=== PATIENT | male | born 1970 | race Caucasian/White ===

== ENCOUNTER 2023-01-08 14:28 | Outpatient (REF) | payer OTHER, SELFPAY ==
--- NOTE | ~2023-01-08 | XR_ITS ---
EXAMINATION: XR CHEST 2 VIEWS CLINICAL INFORMATION: Pre-MRI; right anterior chest foreign body. COMPARISON: None. TECHNIQUE: Frontal and lateral views of the chest were obtained. FINDINGS: The heart, great vessels, pulmonary vasculature and mediastinum are normal. The lungs show no focal infiltrate, effusion or pneumothorax. There is no acute osseous abnormality. Within the anterior lower right chest soft tissues, a 6 mm linear metallic foreign body is noted. XR/XR chest 2V IMPRESSION: 1. No active cardiopulmonary disease. 2. A 6 mm linear metallic foreign bodies noted within the anterior lower right chest soft tissues.
[2023-01-08 17:35] LABS: Hematocrit 43.1 % (42.0-52.0); Mean Corpuscular HGB Conc 34.8 g/dl (31.0-36.0); Mean Corpuscular Hemoglobin 29.5 pg (27.0-33.0); Mean Corpuscular Volume 84.8 fL (80.0-98.0); Mean Platelet Volume 9.7 fL (9.4-12.4); Platelet Count 248 X10*3/uL (160-400); Red Blood Count 5.08 X10*6/uL (4.60-5.80); Red Cell Distribution Width 12.9 % (11.0-16.0); White Blood Count 6.1 X10*3/uL (4.8-10.8)
[2023-01-08 18:38] LABS: Alanine Aminotransferase 31 U/L (0-40); Albumin Level 4.3 g/dL (3.5-5.0); Alkaline Phosphatase 93 U/L (39-117); Anion Gap 13 (12-20); Aspartate Amino Transferase 25 U/L (5-37); Bilirubin Total 1.2 mg/dL (0.0-1.0); Blood Urea Nitrogen 12 mg/dL (9-16); C Reactive Protein < 0.10 mg/dL (< or = 0.50); Calcium 9.1 mg/dL (8.4-10.2); Carbon Dioxide 25 mmol/L (22-29); Chloride 107 mmol/L (96-108); Estimated Glomerular Filt Rate > 60; Glucose Random 83 mg/dL (60-115); Iron 100 mcg/dL (45-160); Percent Iron Saturation 27 % (15-50); Potassium 3.8 mmol/L (3.3-5.1); Sodium 141 mmol/L (135-145); Total Iron Binding Capacity 368 mcg/dL (228-428); Total Protein 6.8 g/dL (6.5-8.0); Unsaturated Iron Binding 268 ug/dL
[2023-01-08 19:09] LABS: Ferritin 136 ng/mL (20-250); Folate 14.1 ng/mL (> or = 4.0); Vitamin B12 361 pg/mL (200-900); Vitamin D 25-OH Total 14.2 ng/mL (>30)
[2023-01-10 04:22] LABS: HBc Num1 0.08 S/CO (0.00-0.79); Hepatitis B Core Antibody Nonreactive (Nonreactive); Hepatitis B Surface Antigen Negative (Negative); ~Hepatitis B Surface Antibody NONREACTIVE (Nonreactive)
[2023-01-10 04:28] LABS: Hepatitis A Antibody IgG Nonreactive (Nonreactive); ~Hepatitis A Antibody IgG 0.64 S/CO (0.00-0.99)
[2023-01-10 04:29] LABS: ~Hepatitis C Antibody Nonreactive (Nonreactive)
[2023-01-10 13:34] LABS: Transglutaminase IgA <1.0 U/mL
[2023-01-10 14:24] LABS: Immunoglobulin A 205 mg/dL (47-310)
[2023-01-17 19:59] LABS: TPMT Activity 15
== END 2023-01-08 14:29 | disposition home or self-care (01) ==
LOC: HO.LAB 14:28
PROVIDERS: PCP Physician Assistant Medical; Visit Provider Internal Medicine
DX: K50.90 Crohn's disease, unspecified, without complications (principal); K74.60 Unspecified cirrhosis of liver; K60.3 Anal fistula; L98.9 Disorder of the skin and subcutaneous tissue, unspecified; S20.151A Superficial foreign body of breast, right breast, initial encounter; X58.XXXA Exposure to other specified factors, initial encounter; Y93.9 Activity, unspecified; Y92.9 Unspecified place or not applicable; Y99.9 Unspecified external cause status; Z79.899 Other long term (current) drug therapy
CPT/HCPCS: 36415; 71046; 80053; 80145; 82306; 82542; 82607; 82657; 82728; 82746; 82784; 83540; 85027; 86140; 86364; 86481; 86704; 86706; 86708; 86803; 87340

== ENCOUNTER → 2023-01-29 14:31 | Outpatient (BNVA) | payer OTHER, SELFPAY | PROVIDERS: PCP Physician Assistant Medical; Visit Provider Internal Medicine | DX: Z13.89 Encounter for screening for other disorder (principal) ==

== ENCOUNTER 2023-01-29 14:49 | Outpatient (REF) | payer OTHER, SELFPAY ==
[2023-02-03 20:29] LABS: Calprotectin, Fecal 10 mcg/g
== END 2023-01-29 14:50 | disposition home or self-care (01) ==
LOC: HO.LNP 14:49
PROVIDERS: Visit Provider Internal Medicine
DX: K50.90 Crohn's disease, unspecified, without complications (principal); K60.3 Anal fistula
CPT/HCPCS: 83993

== ENCOUNTER → 2023-02-19 14:57 | Outpatient (BNVA) | payer OTHER, SELFPAY | PROVIDERS: PCP Physician Assistant Medical; Referring Provider Internal Medicine; Visit Provider Surgery | DX: K60.3 Anal fistula (principal) | CPT/HCPCS: 46600 ==

== ENCOUNTER 2023-02-19 15:40 | Outpatient (REF) | payer OTHER, SELFPAY ==
[2023-02-19 17:03] LABS: Blood Urea Nitrogen 11 mg/dL (9-16); Estimated Glomerular Filt Rate > 60
== END 2023-02-19 15:41 | disposition home or self-care (01) ==
LOC: HO.LAB 15:40
PROVIDERS: PCP Physician Assistant Medical; Visit Provider Surgery
DX: K60.3 Anal fistula (principal)
CPT/HCPCS: 36415; 82565; 84520

== ENCOUNTER 2023-03-09 09:57 | Outpatient (REF) | payer OTHER, SELFPAY ==
--- NOTE | ~2023-03-09 | CT_ITS ---
EXAMINATION: CT ENTEROGRAPHY ABDOMEN AND PELVIS WITH CONTRAST CLINICAL INFORMATION: Anal fistula COMPARISON: None available. TECHNIQUE: Study performed with oral VoLumen (1350 mL) and 480 mL of water to distend the abdomen. The patient was injected with 85 mL Omnipaque 350 intravenous contrast which was administered without adverse effect. Coronal and sagittal reformatted images were obtained at the technologist's workstation. This CT examination was performed using dose optimization techniques as appropriate, variously including the following: *Automated exposure control *Adjustment of mA and/or kV according to patient size (this includes techniques or standardized protocols for targeted exams where dose is matched to indication/reason for exam; i.e. extremities or head) *Use of iterative reconstruction technique DLP: 650 mGy-cm FINDINGS: GASTROINTESTINAL FINDINGS: Stomach: Well-distended and normal in appearance. Small intestine: Satisfactorily distended and normal in appearance. Large intestine: Mild diverticulosis. Well-distended and otherwise normal in appearance. No perirectal changes demonstrated. The appendix is normal. Renal fistula not appreciated. Additional findings: No abnormal enhancement of the vasa recta or significant mesenteric or retroperitoneal lymphadenopathy is seen. No abdominal abscess or fistulous tract demonstrated. ABDOMINAL AND PELVIC CT FINDINGS: Liver, gallbladder, biliary tract: Fatty liver. 1 cm enhancing lesion high in the dome of the liver axial image 28 series 3. 1 cm low-attenuation lesion in the right lobe axial image 54 series 3 probably representing a cyst. 8 mm low-attenuation lesion in the inferior posterior segment of the right lobe axial image 118 series 3 probably representing a cyst. Normal gallbladder. No biliary duct dilatation. Pancreas: Normal Spleen: Normal Adrenal glands and kidneys: The adrenal glands are normal. There 2 small punctate 1 to 2 mm left renal stones.. The kidneys are otherwise normal. Ureters and bladder: Normal Lymphovascular structures: Normal Bones: Degenerative changes of the spine. Lung bases: Normal CT/CT enterography IMPRESSION: Mild diverticulosis of the colon. Otherwise unremarkable enterography exam. Fatty liver. 1 cm enhancing lesion high in the dome of the liver. Probable 2 additional liver cysts. Liver lesions could be further characterized with MRI if clinically indicated. Small left renal stones.
[2023-03-09] MEDS: Sorbitol/Mannit/Xanth Imaging 500 ML LIQUID 1500 ML PO (11:28)
[2023-03-09] MEDS: iohexoL 350 MG/ML 100 ML INFUS..BTL IV (11:35)
== END 2023-03-09 09:58 | disposition home or self-care (01) ==
LOC: HO.CT 09:57
PROVIDERS: PCP Physician Assistant Medical; Visit Provider Internal Medicine
DX: K50.90 Crohn's disease, unspecified, without complications (principal)
CPT/HCPCS: 74177; Q9967

== ENCOUNTER → 2023-03-19 14:14 | Outpatient (BNVA) | payer OTHER, SELFPAY | PROVIDERS: PCP Physician Assistant Medical; Visit Provider Surgery ==

== ENCOUNTER 2023-04-12 10:47 | Day surgery (SDC) | payer OTHER, SELFPAY ==
--- NOTE | 2023-04-11 11:59 | HO.ANESPROP2 ---
HPI - Anesthesia Eval Consult details Narrative: 53yo M for Colonoscopy PMFSH Active Problems Active Problems: All Active Problems (Updated 03/16/23 @ 15:42 by Taylor Casey MD) Liver lesion (Acute) Skin lesion of hand (Acute) Metal foreign body in breast (Acute) Anal fistula (Acute) Crohn's disease (Acute) Past Medical History Medical History Ileorectal fistula Surgical History Surgical History H/O colonoscopy H/O endoscopy History of surgery Social History Social History Alcohol intake: current Patient Tobacco Use Status: Never used Tobacco Meds Allergies Allergy/AdvReac Type Severity Reaction Status Date / Time No Known Allergies Allergy Verified 03/19/23 14:23 Home Medications Medication Instructions Recorded Confirmed Last Taken Type adalimumab 40 mg/0.8 mL 40 mg subcut Q2W 01/08/23 04/10/23 Unknown History subcutaneous syringe kit (Humira) meloxicam 15 mg tablet 15 mg PO DAILY 01/08/23 04/10/23 Unknown History verapamil .Route 01/08/23 03/19/23 Unknown History Exam Exam Date and Time: April 11, 2023 1159 Pertinent Lab Results Pertinent Lab Results: Laboratory Tests 01/08/23 01/08/23 02/19/23 16:14 16:14 15:52 WBC 6.1 Hgb 15.0 Hct 43.1 Plt Count 248 Sodium 141 Potassium 3.8 Chloride 107 Carbon Dioxide 25 BUN 11 Creatinine 1.01 Assessment and Plan Assessment Anesthesia Assessment: Chart Reviewed
[2023-04-12 11:05] VITALS: BMI 36.3
--- NOTE | 2023-04-12 11:57 | MHC.SHP ---
Pre-Procedural Eval Section A Date of Service: 04/12/23 Section B Chief Complaint: Anal fistula, crohns Details of Present Illness: Medical History Anal fistula Surgical History H/O colonoscopy H/O endoscopy Relevant Family History (Specify if Yes): No Relevant Social History: None Present Medications: see Short Stay Collaborative assessment Allergies: Allergies Allergy/AdvReac Type Severity Reaction Status Date / Time No Known Allergies Allergy Verified 03/19/23 14:23 Review of Systems Review of Systems Comment: 10 point ROS negative Exam Exam Comment: Gen appear: No acute distress HEENT: no icterus Chest: No overt resp distress Abd: soft, nontender, nondistended Psych: Stable affect, answering questions appropriately Neuro: A/Ox3 noted to move all extremities spontaneously Ext: no peripheral edema Plan Diagnosis/Plan: Unchanged I have reviewed the history and physical and performed a pertinent physical examination on my patient. No changes have occurred unless specified. Time Spent With Patient Time: Total time managing care of this patient today ____ minutes.
[2023-04-12] MEDS: Lactated Ringers 1,000 ML 100 ML IVCONT (12:12)
[2023-04-12 12:23] VITALS: BP 168/85; PULSE 58; RESP 18; TEMP 36.6; O2SAT 96
[2023-04-12 13:59] VITALS: BP 137/79; PULSE 66; RESP 16; TEMP 36.4; O2SAT 95
--- NOTE | 2023-04-12 13:59 | P.OP_ITS ---
Operative Note Operative Note Date of Service: 04/12/23 Narrative: Procedure: Colonoscopy Indication: Chronic Diarrhea r/o Crohns Endoscopist: Taylor Casey MD Anesthesia Provider: Dr Susan Means Anesthesia type: MAC Instrument: Olympus [id number]-H190L Consent: Indication, risks vs benefits, and alternatives were discussed with the patient who gave written informed consent to proceed. EKG, pulse, pulse oximetry and blood pressure were monitored throughout the procedure. Please see anesthesia flowsheet. Procedure: The patient was brought to the procedure room and placed in the left lateral decubitus position. IV medications were administered by the anesthesia provider in attendance. A digital rectal exam was performed which was normal. A distal attachment cap was affixed to the tip of the scope and the colonoscope was then inserted through the anus and advanced through the colon to the cecum at 75 cm,and terminal ileum. Appendiceal orifice and ileocecal valve were identified. Mucosa was carefully examined under high definition white light as the instrument was slowly withdrawn in a retrograde panoramic fashion. Retroflexion was performed in rectum. The procedure was not difficult. There were no immediate obvious complications. The quality of the prep was BBPS: 3+3+3 = excellent Withdrawal time 13 minutes. Limitations: No limitations. Findings: Mucosa: Normal to cecum and terminal ileum. The terminal ileum was intubated at least 25 cm deep and appeared normal. Cold forceps biopsies were taken from right and left side of the colon as well as rectum and sent for histology. Protruding lesions: * Medium internal hemorrhoids without stigmata of recent bleeding. Excavated lesions: * Small diverticulosis of sigmoid colon. Impression: 1. Normal colon and terminal ileum mucosa (biopsy) 2. Internal hemorrhoids Recommendations: - Follow path results. - No endoscopic evidence of inflammatory bowel disease noted on exam today. - Repeat colonoscopy for asymptomatic CRC screening in 10 years.
[2023-04-12 14:14] VITALS: BP 150/87; PULSE 62; RESP 16; TEMP 36.7; O2SAT 97
== END 2023-04-12 14:47 | disposition home or self-care (01) ==
PROVIDERS: PCP Physician Assistant Medical; Visit Provider Internal Medicine
PROC: 0DJD8ZZ Inspection of Lower Intestinal Tract, Via Natural or Artificial Opening Endoscopic (ICD-10-PCS; CPT 45378; principal; 2023-04-12 12:50)
DX: K50.90 Crohn's disease, unspecified, without complications (principal); K57.30 Diverticulosis of large intestine without perforation or abscess without bleeding; K64.8 Other hemorrhoids; Z79.899 Other long term (current) drug therapy; Z98.890 Other specified postprocedural states
CPT/HCPCS: 45380; 88305

== ENCOUNTER → 2023-04-23 14:59 | Outpatient (BNVA) | payer OTHER, SELFPAY | PROVIDERS: PCP Physician Assistant Medical; Visit Provider Internal Medicine ==

== ENCOUNTER 2023-05-04 09:03 | Day surgery (SDC) | payer OTHER, SELFPAY ==
[2023-05-02 14:55] VITALS: BMI 36.4
--- NOTE | 2023-05-03 08:47 | HO.ANESPROP2 ---
HPI - Anesthesia Eval Consult details Narrative: 53yo M for Exam Under Anesthesia,poss fistulotomy,poss seton, s/p colo 04/12/23 with MAC PMFSH Active Problems Active Problems: All Active Problems (Updated 03/16/23 @ 15:42 by Taylor Casey MD) Liver lesion (Acute) Skin lesion of hand (Acute) Metal foreign body in breast (Acute) Anal fistula (Acute) Crohn's disease (Acute) Past Medical History Medical History Ileorectal fistula Surgical History Surgical History H/O colonoscopy H/O endoscopy History of surgery Social History Social History Alcohol intake: current Patient Tobacco Use Status: Never used Tobacco Meds Allergies Allergy/AdvReac Type Severity Reaction Status Date / Time No Known Allergies Allergy Verified 03/19/23 14:23 Home Medications Medication Instructions Recorded Confirmed Last Taken Type adalimumab 40 mg/0.8 mL 40 mg subcut Q2W 01/08/23 04/10/23 Unknown History subcutaneous syringe kit (Humira) meloxicam 15 mg tablet 15 mg PO DAILY 01/08/23 04/10/23 Unknown History verapamil PO 04/23/23 Unknown History Exam Exam Date and Time: May 03, 2023 0847 Height,Weight and Vital Signs: Height 5 ft 5 in Weight 99.195 kg Pertinent Lab Results Pertinent Lab Results: Laboratory Tests 01/08/23 01/08/23 02/19/23 16:14 16:14 15:52 WBC 6.1 Hgb 15.0 Hct 43.1 Plt Count 248 Sodium 141 Potassium 3.8 Chloride 107 Carbon Dioxide 25 BUN 11 Creatinine 1.01 Assessment and Plan Assessment Anesthesia Assessment: Chart Reviewed
[2023-05-04] VITALS (7 sets, daily range): BP systolic 124–171; BP diastolic 71–94; PULSE 57–69; RESP 12–18; TEMP 36.6–36.9; O2SAT 95–98
--- NOTE | 2023-05-04 09:00 | MHC.SHP ---
Pre-Procedural Eval Section A Date of Service: 05/04/23 Section B Chief Complaint: Anal fistula Details of Present Illness: has had an area of recurrent swelling and drainage outside the anus, with history of anal fistula in the past; he has a question of Crohn's disease and is being followed by GI Relevant Family History (Specify if Yes): No Relevant Social History: None Present Medications: see Short Stay Collaborative assessment Medical History: Significant History ( Crohn's disease) Allergies: Allergies Allergy/AdvReac Type Severity Reaction Status Date / Time No Known Allergies Allergy Verified 03/19/23 14:23 Review of Systems Sugical H&P ROS: Negative: Constitution, Cardiovascular, Respiratory, Neurological, Psychiatric, Hem-Onc, Allergic/Immunologic, Gastrointestinal, Genitourinary, Musculoskeletal, Integumentary, Endocrine and Eyes/Ears/Nose/Throat Exam Surgical H&P Exam: Normal: HEENT, Normal: Heart, Normal: Lungs, Normal: Extremities, Normal: Abdomen, Normal: Skin and Normal: Neurological Plan Diagnosis/Plan: Unchanged I have reviewed the history and physical and performed a pertinent physical examination on my patient. No changes have occurred unless specified. Time Spent With Patient Time: Total time managing care of this patient today ____ minutes.
--- NOTE | 2023-05-04 09:57 | HO.ANESPROP2 ---
HPI - Anesthesia Eval Consult details Narrative: for exam under anesth and fisti caio repair PMFSH Active Problems Active Problems: All Active Problems (Updated 05/04/23 @ 09:35 by Alanna Stern RN) Crohn's disease (Acute) Anal fistula (Acute) Metal foreign body in breast (Acute) Skin lesion of hand (Acute) Liver lesion (Acute) Past Medical History Medical History Ileorectal fistula Sleep apnea Family History Family history of problems with anesthesia: No Surgical History Surgical History H/O colonoscopy H/O endoscopy History of surgery History of Problems with Anesthesia: No Social History Social History Alcohol intake: current Patient Tobacco Use Status: Former Tobacco user Use of substances other than those prescribed or required for medical reasons: No Are you DNR?: No Advance Directives: No Advance Directives Information Provided: Yes Recently lost weight without trying: No Nutrition Risks: No Nutritional Risk Meds Allergies Allergy/AdvReac Type Severity Reaction Status Date / Time No Known Allergies Allergy Verified 03/19/23 14:23 Active Medications: Current Medications Lactated Ringer's (Lr) 1,000 mls @ 100 mls/hr IVCONT .Q10H [facility] Home Medications Medication Instructions Recorded Confirmed Last Taken Type adalimumab 40 mg/0.8 mL 40 mg subcut Q2W 01/08/23 05/04/23 Unknown History subcutaneous syringe kit (Humira) meloxicam 15 mg tablet 15 mg PO DAILY 01/08/23 05/04/23 Unknown History verapamil 240 mg PO BEDTIME 04/23/23 05/04/23 Unknown History Exam Exam Date and Time: May 04, 2023 0957 Height,Weight and Vital Signs: Height 5 ft 5 in Weight 99.195 kg Airway Mallampati Class: II TM Dist: >3cm Neck ROM: Full Heart: rrr Lungs: cta Assessment and Plan Assessment Anesthesia Assessment: Anesthesia Plan Discussed and Chart Reviewed Final Anesthetic Review Family History of Problems with Anesthesia: No History of Problems with Anesthesia: No ASA Class: II Final Preanesthetic Review: No Changes in Pt Med Stat, Meds/Allgs Chart Reviewed, Consent Obtained/Reviewed and Anes Risks/Benef Reviewed Patient Risk: Low Procedure Risk: Low Anesthetic Plan Anesthetic Plan: GA Disposition: Standard PACU
--- NOTE | 2023-05-04 11:47 | W.PM.OPN ---
Operative Note Operative Note Date of Service: 05/04/23 Narrative: Preop diagnosis: Anal fistula Postop diagnosis: Anal fistula, spontaneously resolved Procedure: Exam under anesthesia Surgeon: Dustin Garrido MD The patient is a 53-year-old male who was seen in the office because of recurrent healing and discharge from the right side of the perianal area. He does have a history of an anal fistula and had refer this in the distant past. exam in the office showed foot appeared to be an active fistula on the perianal area. He understood the technique of exam under anesthesia and possible fistulotomy and seton placement. He was aware of the risks, benefits, and alternatives He did state today that he had not notice any significant drainage for a few weeks now. He was brought the operating room. He was placed in prone chandler-knife position under general anesthesia via endotracheal tube. The buttocks were retracted with wide tape laterally. The perianal area was prepped and draped in these were sterile fashion. A surgical time-out was done. The patient received Cefotan 2 g IV preoperatively I infiltrated the perianal area with with lidocaine 1%. Examination showed a fibrotic area in the perianal region. This is likely due to his previous procedures for fistula in this area.I could not identify any active sinus however . I inserted the Ame Mathews retractor. I examined the anal canal circumferentially. I could not feel any induration or identify an internal sinus along the dentate line . He did have significant hemorrhoidal tissue, external and internal on both the left and the right side. Again I circumferentially the entire anal canal and did not identify any fistulous tract. There was no induration on digital exam. I attempted to insert probe into the fibrotic area but I could not identify any external sinus It therefore appeared that the fistulous tract may have history resolved. The procedure was completed therefore The patient tolerated procedure well. There were no immediate complications. He was extubated without difficulty and transferred to the recovery room with stable vital signs.
== END 2023-05-04 12:50 | disposition home or self-care (01) ==
PROVIDERS: PCP Physician Assistant Medical; Visit Provider Surgery
PROC: (CPT 45990; principal; 2023-05-04 10:40)
DX: K60.3 Anal fistula (principal); K64.8 Other hemorrhoids; K64.4 Residual hemorrhoidal skin tags; G47.30 Sleep apnea, unspecified; K50.919 Crohn's disease, unspecified, with unspecified complications; Z79.620 Long term (current) use of immunosuppressive biologic; Z79.899 Other long term (current) drug therapy; Z98.890 Other specified postprocedural states; Z87.891 Personal history of nicotine dependence
CPT/HCPCS: 45990; J0330; J1100; J2405; J2795; J3010

== ENCOUNTER 2023-05-17 11:17 | Outpatient (AMB) | payer OTHER, SELFPAY ==
--- NOTE | 2023-05-17 11:18 | MHC.OFFVIS ---
Intake Intake Visit Reasons: S/P EUA, poss fistulotomy/seton placement Intake Note: This patient presents for a post-op assessment stauts post EUA,seton. Patient denies complaints at this time. Manager Field Required: No Accompanied by: Other Relationship Allergies No Known Allergies Allergy (Verified 05/17/23 11:22) HPI S/P EUA, poss fistulotomy/seton placement HPI Details He had undergone exam under anesthesia last May 04 because of suggestion of an anal fistula. However, there was no fistula seen so no fistulotomy nor seton placement was done. It appeared that the this fistula had closed completely. There was no induration that was noted. He says the area has been dry. He denies any swelling or pain. [facility] Medical History Ileorectal fistula Sleep apnea Surgical History H/O colonoscopy H/O endoscopy History of surgery Social History Alcohol intake: current Patient Tobacco Use Status: Former Tobacco user Review of Systems Const Denies chills and Denies fever(s) Card Denies chest pain, Denies dyspnea and Denies dyspnea on exertion Resp Denies cough, Denies dyspnea and Denies dyspnea on exertion GI Denies hematochezia and Denies change in bowel habits Denies hematuria and Denies difficulty urinating Musc Denies back pain and Denies limited range of motion Neuro Denies focal weakness and Denies convulsions Psych Denies depression and Denies mood swings Physical Exam Const General: comfortable and no acute distress GI Other: rectal - no induration, no fluctuance, no discharge Assessment & Plan Assessment & Plan (1) Anal fistula: Code(s): K60.3 - Anal fistula Plan: S/P EUA. Exam in the OR showed that there was no active fistulous disease. No external or internal sinus was identified and there was no induration. There is likely spontaneous resolution of his fistula. He can ffup on a prn basis. Coding Level of Care Code Global (67557) Diagnoses Anal fistula K60.3
== END 2023-05-17 11:25 | disposition home or self-care (01) ==
PROVIDERS: PCP Physician Assistant Medical; Visit Provider Surgery
DX: K60.3 Anal fistula (principal)
CPT/HCPCS: 99212

== ENCOUNTER → 2023-05-17 11:17 | Outpatient (BNVA) | payer OTHER, SELFPAY | PROVIDERS: PCP Physician Assistant Medical; Visit Provider Surgery ==

== ENCOUNTER 2023-08-06 13:32 | Outpatient (REF) | payer OTHER, SELFPAY ==
[2023-08-06 14:37] LABS: Alanine Aminotransferase 24 U/L (0-40); Alkaline Phosphatase 77 U/L (39-117); Anion Gap 15 (12-20); Aspartate Amino Transferase 22 U/L (5-37); Bilirubin Direct 0.1 mg/dL (0.0-0.5); Bilirubin Total 0.6 mg/dL (0.0-1.0); Blood Urea Nitrogen 12 mg/dL (9-16); Calcium 9.7 mg/dL (8.4-10.2); Carbon Dioxide 25 mmol/L (22-29); Chloride 105 mmol/L (96-108); Estimated Glomerular Filt Rate > 60; Glucose Random 85 mg/dL (60-115); Potassium 4.1 mmol/L (3.3-5.1); Sodium 141 mmol/L (135-145); Total Protein 7.2 g/dL (6.5-8.0)
[2023-08-09 09:43] LABS: TS Negative Control Passed; TS Panel A 6; TS Panel B 12; TS Positive Control Passed; TSpotTB Positive (Negative)
== END 2023-08-06 13:33 | disposition home or self-care (01) ==
LOC: HO.LAB 13:32
PROVIDERS: Visit Provider Internal Medicine
DX: K76.9 Liver disease, unspecified (principal); K50.90 Crohn's disease, unspecified, without complications
CPT/HCPCS: 36415; 80048; 80076; 85027; 85610; 86481

== ENCOUNTER 2023-08-10 10:31 | Outpatient (REF) | payer OTHER, SELFPAY ==
--- NOTE | ~2023-08-10 | CT_ITS ---
EXAMINATION: CT ABDOMEN WITHOUT AND WITH CONTRAST CLINICAL INFORMATION: Liver disease COMPARISON: Previous CT of the abdomen and pelvis February 2023 TECHNIQUE: Contiguous axial thin section helical images of the abdomen were performed before and after the administration of oral contrast and 85 mL of Omnipaque 350 intravenous contrast. The data set was reformatted in the coronal and sagittal planes and reviewed on an independent workstation. This CT examination was performed using dose optimization techniques as appropriate, variously including the following: *Automated exposure control *Adjustment of mA and/or kV according to patient size (this includes techniques or standardized protocols for targeted exams where dose is matched to indication/reason for exam; i.e. extremities or head) *Use of iterative reconstruction technique DLP: 1755 mGy-cm FINDINGS: LUNG BASES: Unremarkable LIVER, GALLBLADDER, AND BILIARY TREE: There is mild fatty infiltration of the liver. There is a 1.2 cm observation high in the dome of the liver. This is difficult to appreciate on precontrast images. This demonstrates early arterial phase heterogeneous enhancement. Example axial image 11 series 5. This remains enhanced with respect to the liver on late however appears slightly decreased in size and it is difficult to exclude some washout. There is an 8 mm low-attenuation lesion high in the right lobe of the liver. This does not demonstrate enhancement for example axial image 24 series 5 and probably represents a cyst. There is a 8 mm observation of early arterial phase enhancement in the anterior segment of the right lobe of the liver axial image 28 series 5. This is not seen on precontrast or delayed or venous phase imaging and difficult to accurately characterize. There is a similar 5 mm peripheral or subpleural 5 mm early arterial phase enhancement observation in the medial segment of the left lobe of the liver axial image 41 series 5. Again this is not appreciated on any other series. There is a similar 5 mm peripheral or subpleural observation in menstruating early arterial phase enhancement axial image 53 series 5. This is not appreciated on any other series as well. There is a 6 mm low-attenuation lesion in the posterior segment of the right lobe of the liver. This does not demonstrate enhancement for example axial image 60 series 5 and probably represents a cyst. Liver contour is normal. The gallbladder is normal. There is no biliary duct dilatation. PANCREAS: Normal SPLEEN: Normal ADRENAL GLANDS AND KIDNEYS: Small stones in the upper pole of the left kidney, largest measuring 3 mm. Kidneys are otherwise normal. BOWEL LOOPS: Diverticulosis of the colon. No evidence of diverticulitis. Small and large bowel are otherwise normal. The visualized appendix is normal. The stomach is normal. LYMPH NODES: Normal. VASCULAR: Unremarkable. BONES: Degenerative changes of the spine. CT/CT abdomen wo/w IV con IMPRESSION: Several liver lesions difficult to characterize, largest measuring 1.2 cm high in the dome of the liver. Follow-up liver MRI recommended. Mild fatty infiltration of the liver. Left renal stones. Fleischner guidelines were followed.
[2023-08-10] MEDS: iohexoL 350 MG/ML 100 ML INFUS..BTL IV (11:28)
== END 2023-08-10 10:32 | disposition home or self-care (01) ==
LOC: HO.CT 10:31
PROVIDERS: PCP Physician Assistant Medical; Visit Provider Internal Medicine
DX: K76.9 Liver disease, unspecified (principal)
CPT/HCPCS: 74170; Q9967

== ENCOUNTER 2023-08-31 14:49 | Outpatient (AMB) | payer OTHER, SELFPAY ==
--- NOTE | 2023-08-31 15:00 | A.OFFVIS_ITS ---
Intake Vital Signs 08/31/23 15:01 Height 5 ft 5 in Weight 224 lb 13.944 oz BMI 37.4 BP 154/83 H Blood Pressure Location Lt brachial Position Sitting Pulse 72 Intake Visit Reasons: Follow up CT results Intake Note: Luis presents in the office as a follow up CT scan. CC: Here for results to his CT scan. He had shoulder surgery recently. He feels like he is weak and everything always hurts. He states that his head and his stomach are always hurting. [employer] Required: No Allergies No Known Allergies Allergy (Verified 08/31/23 15:05) HPI HPI Comments History of Present Illness Details This is a 52y.o M with psoriasis on Humira who is here for follow up. Previously was being seen for ? crohns however based on review of previous documentation at [facility] [place] and [place] done [place] [facility] [place] no evidence of IBD so far. Main reason for follow up today is liver lesion . IBD history: Type: Crohns Location: [facility] Age/year of diagnosis: 1987/ 18 y.o Presenting sx: Initially had an anal fistula in 1987 however at that time was not given a dx of Crohns when he was seen at [facility]. Then started having abd pain with diarrhea with urgency with blood in stool starting [address] Lange in 2007 and while initial work up was negative per his report he did get started on Remicade x 2 years (which then got discontinued as it stopped working). Pt fell off the grid as his GI physician changed practice, he then established care with Dr Avina at [facility] around 2015, and again lost to follow up when physician changed practice. Previous medications: Remicade [id number], Symponi 2016 (a few months through Rheum), Humira ([id number] stopped due to injection site pain), resumed Humira (since 2021) Current medications: Humira 40mg q2w Prev surgeries: Anal fistula x 3 [facility] (1987, 1999, 2015) Recent endoscopy: Colonoscopy 06/2017 (Dr. Avina):? Erosion in terminal ileum.? Colon otherwise normal.? Diverticulosis in sigmoid colon.? Hemorrhoids.? Path:? TI: Normal.? Right-sided colon: focal active colitis no granuloma or dysplasia.? Left-sided colon: Normal.? Rectum:? Normal. EIM: Psoriasis present since 1985 (humira was in fact started by Rheum Dr Hull, thinks Remicade is what helped the most) Fam hx: ? sister possibly Crohn's 01/08/23: Reports that his last colorectal surg was quite daunting and he was told he may need an ileostomy so he never followed up even though the fistula never fully healed. Has continues to have that anal fistula which intermittently flares up and becomes painful with bleeding x 1 week, every few months. Pt has never noticed any feculent discharge through this, only reports blood or clear discharge. In addition also has daily abdominal pain that is periumbilical which does not seem to be related to fistula or food. Does get better with passing BM. BMs are mostly loose without blood. Has 5-6 BMs/day with urgency, occ nocturnal sx. Tenesmus. Limits his out of home time and activity significantly. 01/29/23: Reports discharge has improved. Is not as frequent or as much. However, he is not able to feel a small perianal bump. Continues to have loose watery diarrhea. Labs reviewed. Adalilumab levels 9.2. Without any drug antibody. Vit D low, supplements sent. Fecal calpro pending (pt submitted just today). Records from [facility] pending. CXR does in fact show a metalic FB and therefore unable to MRI. 03/09/23: CT enterography: Mild diverticulosis of the colon. Otherwise unremarkable enterography exam. Fatty liver. 1 cm enhancing lesion high in the dome o f the liver. Probable 2 additional liver cysts. Liver lesions could be further characterized with MRI if clinically indicated. Small left renal stones. 04/12/23: Flasher Impression: 1. Normal colon and terminal ileum mucos a (biopsy) 2. Internal hemorrhoids Path: A.? Colon, right, biopsy:? Colonic mucosa with lymphoid aggregates and no specific change; no colitis, granulomas or dysplasia.? B.? Colon, left, biopsy:? Colonic mucosa with lymphoid aggregates and no specific change; no colitis, granulomas or dysplasia.? C.? Colon, rectum, biopsy:? Colonic mucosa with lymphoid aggregates and minimal hyperplastic changes, otherwise no specific change; no colitis/proctitis, granulomas or dysplasia.? 04/23/23: Again, GI sx are more or less unchanged. Has periumbilical abd pain assoc with multiple loose BMs/ day. Pain not changed by passing the BM. No blood in stool. Has not noticed much perianal discharge in the last few weeks. CTE and colo findings reviewed with the pt - briefly no inflammatory activity noted. No obvious fistula or draining abscess noted. 08/31/23: Following up after getting a triple phased CT to follow up on abnormal CTE that showed a 1 cm enhancing lesion. Pt has a metallic foreign body subdermally in his chest of unknown origin due to which he is unable to get an MRI. Currently, no new GI sx. Here with his to discuss next step for eval of this 1 cm lesion. Of note - recent labs show TSPOT pos??? previously reports this was negative when it was checked by his program control analyst prior to starting him on Humira for psoriasis. In terms of ?? anal fistula vs abscess reports that a week after he was seen by Dr Garrido and JASSI was negative, it re-appeared and started draining again. They have not contacted his office re this. [facility] Medical History Sleep apnea Ileorectal fistula Surgical History History of surgery H/O endoscopy H/O colonoscopy Social History Alcohol intake: current Patient Tobacco Use Status: Former Tobacco user Review of Systems Const All systems reviewed & are unremarkable except as noted in HPI and below Physical Exam Vital Signs: Last Vital Signs Pulse 72 08/31/23 15:01 BP 154/83 H 08/31/23 15:01 BMI result Body Mass Index 37.4 Gen appear: NAD HEENT: nonicteric, no cervical lymphadenopathy Chest: CTA CVS: Regular S1/S2 Abd: soft, nontender, nondistended, bowel sounds + Ext: no peripheral edema Neuro: A/Ox3, noted to move all extremities spontaneously Psych: interacting appropriately Results Reviewed Results Reviewed: CTE 03/09/23: Mild diverticulosis of the colon. Otherwise unremarkable enterography exam. Fatty liver. 1 cm enhancing lesion high in the dome of the liver. Probable 2 additional liver cysts. Liver lesions could be further characterized with MRI if clinically indicated. Small left renal stones. CT triple phased 08/10/23: LIVER, GALLBLADDER, AND BILIARY TREE: There is mild fatty infiltration of the liver. There is a 1.2 cm observation high in the dome of the liver. This is difficult to appreciate on precontrast images. This demonstrates early arterial phase heterogeneous enhancement. Example axial image 11 series 5. This remains enhanced with respect to the liver on late however appears slightly decreased in size and it is difficult to exclude some washout. There is an 8 mm low- attenuation lesion high in the right lobe of the liver. This does not demonstrate enhancement for example axial image 24 series 5 and probably represents a cyst. There is a 8 mm observation of early arterial phase enhancement in the anterior segment of the right lobe of the liver axial image 28 series 5. This is not seen on precontrast or delayed or venous phase imaging and difficult to accurately characterize. There is a similar 5 mm peripheral or subpleural 5 mm early arterial phase enhancement observation in the medial segment of the left lobe of the liver axial image 41 series 5. Again this is not appreciated on any other series. There is a similar 5 mm peripheral or subpleural observation in menstruating early arterial phase enhancement axial image 53 series 5. This is not appreciated on any other series as well. There is a 6 mm low-attenuation lesion in the posterior segment of the right lobe of the liver. This does not demonstrate enhancement for example axial image 60 series 5 and probably represents a cyst. Liver contour is normal. The gallbladder is normal. There is no biliary duct dilatation. 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 Liver lesion: Incidentally noted on CTE. Unable to MRI due to metallic FB in R side of the ch est. CT triple phase was also not able to characterize this fully. Discussed with the pt and his that stability in size over months is reassuring and can either monitor this with serial imaging or refer for biopsy. They would like to opt for biopsy which has been requested. - US guided liver lesion bx 2. TSPOT pos Per his report, previously TSPOT has been negative when it was checked prior to starting Humira by his Derm. Discussed that possibly false positive and will recheck. Plan: - If negative, no further follow up needed. - If persistently positive, will refer him to ID. He will also need to update his Derm as hes on Humira for psoriasis. 3. Perianal drainage from ?fistula: No evidence of fistula/sinus/abscess on EUA or CTE done earlier this year. However pt reports this has now recurred. - Advised to call surgery office again for evaluation From prev visit re ?Crohns: Discussed with the pt at this time there is no evidence of active inflammatory bowel disease based on work up above. While I am not able to see an established histological dx of crohns, this is confounded by his longstanding hx of biologic use for psoriasis - i.e current colo was done on humira with drug level 9.2 in January. Prior to this, colo in 2017 at [facility] [place] was likely done on golimumab. No prior records from initial reported dx in through Dr Lange's office. 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
[2023-08-31 15:01] VITALS: BP 154/83; PULSE 72; BMI 37.4
== END 2023-08-31 16:05 | disposition home or self-care (01) ==
PROVIDERS: PCP Physician Assistant Medical; Visit Provider Internal Medicine
DX: K76.9 Liver disease, unspecified (principal); R76.11 Nonspecific reaction to tuberculin skin test without active tuberculosis; K60.3 Anal fistula
CPT/HCPCS: 99214

== ENCOUNTER 2023-08-31 14:49 | Outpatient (REF) | payer OTHER, SELFPAY ==
[2023-09-02 18:18] LABS: TS Negative Control Passed; TS Panel A 6; TS Panel B 10; TS Positive Control Passed; TSpotTB Positive (Negative)
== END 2023-08-31 14:50 | disposition home or self-care (01) ==
LOC: HO.LAB 14:49
PROVIDERS: PCP Internal Medicine; Visit Provider Internal Medicine
DX: R76.11 Nonspecific reaction to tuberculin skin test without active tuberculosis (principal); K76.9 Liver disease, unspecified; K60.3 Anal fistula
CPT/HCPCS: 36415; 86481

== ENCOUNTER 2023-09-14 12:26 | Outpatient (REF) | payer OTHER, SELFPAY ==
--- NOTE | ~2023-09-14 | US_ITS ---
EXAMINATION: US ABDOMEN LIMITED CLINICAL INFORMATION: Lesion of liver. COMPARISON: 08/10/2023 CT scan TECHNIQUE: Real-time imaging of the right upper quadrant abdominal viscera. FINDINGS: PANCREAS: Detail obscured by overlying bowel gas. Visualized portions of the body unremarkable LIVER: Diffusely increased hepatic echotexture suggesting underlying diffuse fatty infiltration. In the right dome of the liver there is a 1.4 cm cyst corresponding with the low-attenuation abnormality seen in the lateral aspect of the right dome. The CT scan also demonstrated a more superior and medially positioned enhancing lesion which is not able to be appreciated on the ultrasound. In theory a echogenic hemangioma may be difficult to distinguish from the background echogenic fatty liver on ultrasound. No biliary ductal dilatation. GALLBLADDER: Normal. The gallbladder is physiologically distended without evidence of stones, sludge, polyps, wall thickening or pericholecystic fluid. COMMON BILE DUCT: Normal in caliber measuring 0.7 cm in diameter. RIGHT KIDNEY: Normal. No hydronephrosis. No renal calculi or focal parenchymal lesions. The kidney measures 12.6 cm in maximum dimension. FREE FLUID: None. US/US abdomen limited IMPRESSION: Diffuse fatty infiltration of the liver. There is a 1.4 cm cyst in the right lobe of the liver corresponding to the low-attenuation lesion seen on the CT scan. The additional more superior and medially positioned enhancing lesion seen along the bladder dome on the CT scan is not able to be appreciated on the ultrasound. In theory an echogenic hemangioma may be difficult to distinguish from the background echogenic fatty liver on ultrasound.
== END 2023-09-14 12:27 | disposition home or self-care (01) ==
LOC: HO.US 12:26
PROVIDERS: PCP Internal Medicine; Visit Provider Internal Medicine
DX: K76.9 Liver disease, unspecified (principal)
CPT/HCPCS: 76705

== ENCOUNTER 2023-10-01 14:29 | Outpatient (AMB) | payer OTHER, SELFPAY ==
--- NOTE | 2023-10-01 14:38 | MHC.OFFVIS ---
Intake Vital Signs 10/01/23 14:42 Height 5 ft 5 in Weight 234 lb BMI 38.9 BP 126/86 Blood Pressure Location Lt brachial Position Sitting Pulse 75 Pulse Source Pulse Oximeter Pulse Oximetry (%) 97 Intake Visit Reasons: Dr.Zia newton reactionTB test notactive Allergies No Known Allergies Allergy (Verified 10/01/23 14:42) HPI Dr.Zia newton reactionTB test notactive HPI Details He has recent reactive quantitative interferon test. He notes no known exposure. He has no HIV risk factor. [facility] Medical History Sleep apnea Ileorectal fistula Surgical History History of surgery H/O endoscopy H/O colonoscopy Social History Alcohol intake: current Patient Tobacco Use Status: Former Tobacco user Review of Systems Const All systems reviewed & are unremarkable except as noted in HPI and below Physical Exam Vital Signs: Last Vital Signs Pulse 75 10/01/23 14:42 BP 126/86 10/01/23 14:42 Pulse Ox 97 10/01/23 14:42 BMI result Body Mass Index 38.9 Const General: cooperative Orientation/consciousness: patient oriented x3 HEENT Head: Yes normal to inspection Mouth: Normal oral and palatal mucosa present Eyes General: appearance normal, both eyes and all related structures Pupils: Equal, round and reactive pupils present Resp Effort & Inspection: normal respiratory effort Cardio Rate: regular rate Rhythm: regular rhythm GI Palpation (GI): Soft to palpation and nontender General: Yes no CVA tenderness Back/Spine/Pelvis Back: no CVA tenderness Skin General skin exam: no rashes or lesions noted Neuro General: patient oriented x3 Cranial nerves: Yes CN's II-XII intact bilaterally and Yes Equal, round and reactive pupils present Extrem General: Yes normal to inspection Psych Appearance: grossly normal Assessment & Plan Assessment & Plan (1) 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 Check LFT and HIV test Start treatment for latent TB if above unremarkable. 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
[2023-10-01 14:42] VITALS: BP 126/86; PULSE 75; O2SAT 97; BMI 38.9
== END 2023-10-01 15:24 | disposition home or self-care (01) ==
PROVIDERS: PCP Internal Medicine; Visit Provider Internal Medicine
DX: R76.11 Nonspecific reaction to tuberculin skin test without active tuberculosis (principal)
CPT/HCPCS: 99213

== ENCOUNTER 2023-10-01 14:29 | Outpatient (REF) | payer OTHER, SELFPAY ==
--- NOTE | ~2023-10-01 | XR_ITS ---
EXAMINATION: XR CHEST CLINICAL INFORMATION: Nonspecific reactions tuberculin skin test without active tuberculosis COMPARISON: Chest radiograph from 01/08/2023 TECHNIQUE: 2 views of the chest were obtained. FINDINGS: No focal consolidation. No pneumothorax. Trachea is midline. Cardiac mediastinal silhouette is stable. Aorta demonstrates tortuosity. Degenerative changes of the thoracolumbar spine. Redemonstration of 5 mm radiopaque density overlying the right upper abdomen. XR/XR chest 2V IMPRESSION: No acute cardiopulmonary process.
[2023-10-01 16:21] LABS: Alanine Aminotransferase 30 U/L (0-40); Albumin Level 4.3 g/dL (3.5-5.0); Alkaline Phosphatase 87 U/L (39-117); Aspartate Amino Transferase 21 U/L (5-37); Bilirubin Direct 0.2 mg/dL (0.0-0.5); Bilirubin Total 0.8 mg/dL (0.0-1.0); Total Protein 7.4 g/dL (6.5-8.0)
[2023-10-02 08:19] LABS: HIV Num 1 6.84 S/CO (0.00-0.99)
[2023-10-02 10:25] LABS: HIV Num 2 0.04 S/CO
[2023-10-02 10:27] LABS: HIV AB/AG Nonreactive (Nonreactive); HIV Num 3 0.04 S/CO
== END 2023-10-01 14:30 | disposition home or self-care (01) ==
LOC: HO.XRAY 14:29
PROVIDERS: PCP Internal Medicine; Visit Provider Internal Medicine
DX: Z11.4 Encounter for screening for human immunodeficiency virus [HIV] (principal); R76.11 Nonspecific reaction to tuberculin skin test without active tuberculosis
CPT/HCPCS: 36415; 71046; 80076; 87389

== ENCOUNTER 2023-12-07 11:59 | Outpatient (REF) | payer OTHER, SELFPAY ==
[2023-12-07 13:20] LABS: Hematocrit 37.7 % (42.0-52.0); Mean Corpuscular HGB Conc 34.5 g/dl (31.0-36.0); Mean Corpuscular Hemoglobin 30.2 pg (27.0-33.0); Mean Corpuscular Volume 87.7 fL (80.0-98.0); Mean Platelet Volume 9.1 fL (9.4-12.4); Platelet Count 313 X10*3/uL (160-400); Red Cell Distribution Width 13.4 % (11.0-16.0); White Blood Count 6.9 X10*3/uL (4.8-10.8)
[2023-12-07 13:56] LABS: Alanine Aminotransferase 43 U/L (0-40); Albumin Level 4.3 g/dL (3.5-5.0); Alkaline Phosphatase 82 U/L (39-117); Aspartate Amino Transferase 26 U/L (5-37); Bilirubin Direct 0.2 mg/dL (0.0-0.5); Bilirubin Total 0.5 mg/dL (0.0-1.0); Total Protein 7.4 g/dL (6.5-8.0)
== END 2023-12-07 12:00 | disposition home or self-care (01) ==
LOC: HO.LAB 11:59
PROVIDERS: PCP Internal Medicine; Visit Provider Internal Medicine
DX: R10.9 Unspecified abdominal pain (principal); K62.5 Hemorrhage of anus and rectum; K76.9 Liver disease, unspecified
CPT/HCPCS: 36415; 80076; 85027

== ENCOUNTER 2023-12-07 11:59 | Outpatient (AMB) | payer OTHER, SELFPAY ==
--- NOTE | 2023-12-07 12:06 | MHC.OFFVIS ---
Intake Vital Signs 12/07/23 12:09 Height 5 ft 5 in Weight 220 lb BMI 36.6 BP 122/66 Blood Pressure Location Lt brachial Position Sitting Pulse 72 Intake Visit Reasons: pt req appointment Intake Note: Patient request follow up due rectal bleeding. Patient cc: abdominal cramps with rectal bleeding, as soon patient starting with new med abdominal cramp started. Denies any other GI issues. Fiber Optic Splicer Required: No Accompanied by: Spouse Allergies No Known Allergies Allergy (Verified 12/07/23 12:06) HPI HPI Comments History of Present Illness Details This is a 52y.o M with psoriasis on Humira who is here for follow up. Previously was being seen for ? crohns however based on review of previous documentation at [facility] [place] and work up done here at [facility] [place], no evidence of IBD so far. Main reason for follow up today is rectal bleeding . IBD history: Type: Crohns Location: [place] Age/year of diagnosis: 1987/ y.o Presenting sx: Initially had an anal fistula in 1987 however at that time was not given a dx of Crohns when he was seen at [facility]. Then started having abd pain with diarrhea with urgency with blood in stool starting [address] Lange in 2007 and while initial work up was negative per his report he did get started on Remicade x 2 years (which then got discontinued as it stopped working). Pt fell off the grid as his GI physician changed practice, he then established care with Dr Avina at [facility] around 2015, and again lost to follow up when physician changed practice. Previous medications: Remicade [id number], Symponi 2015 (a few months through Rheum), Humira ([id number] stopped due to injection site pain), resumed Humira (since 2021) Current medications: Humira 40mg q2w Prev surgeries: Anal fistula x 3 [facility] (1987, 1999, 2015) Recent endoscopy: Colonoscopy 06/2017 (Dr. Avina):? Erosion in terminal ileum.? Colon otherwise normal.? Diverticulosis in sigmoid colon.? Hemorrhoids.? Path:? TI: Normal.? Right-sided colon: focal active colitis no granuloma or dysplasia.? Left-sided colon: Normal.? Rectum:? Normal. EIM: Psoriasis present since 1985 (humira was in fact started by Rheum Dr Hull, thinks Remicade is what helped the most) Fam hx: ? sister possibly Crohn's 3/13/23: Reports that his last colorectal surg was quite daunting and he was told he may need an ileostomy so he never followed up even though the fistula never fully healed. Has continues to have that anal fistula which intermittently flares up and becomes painful with bleeding x 1 week, every few months. Pt has never noticed any feculent discharge through this, only reports blood or clear discharge. In addition also has daily abdominal pain that is periumbilical which does not seem to be related to fistula or food. Does get better with passing BM. BMs are mostly loose without blood. Has 5-6 BMs/day with urgency, occ nocturnal sx. Tenesmus. Limits his out of home time and activity significantly. 01/29/23: Reports discharge has improved. Is not as frequent or as much. However, he is not able to feel a small perianal bump. Continues to have loose watery diarrhea. Labs reviewed. Adalilumab levels 9.2. Without any drug antibody. Vit D low, supplements sent. Fecal calpro pending (pt submitted just today). Records from [facility] pending. CXR does in fact show a metalic FB and therefore unable to MRI. 03/09/23: CT enterography: Mild diverticulosis of the colon. Otherwise unremarkable enterography exam. Fatty liver. 1 cm enhancing lesion high in the dome of the liver. Probable 2 additional liver cysts. Liver lesions could be further characterized with MRI if clinically indicated. Small left renal stones. 04/12/23: [place] Impression: 1. Normal colon and terminal ileum mucosa (biopsy) 2. Internal hemorrhoids Path: A.? Colon, right, biopsy:? Colonic mucosa with lymphoid aggregates and no specific change; no colitis, granulomas or dysplasia.? B.? Colon, left, biopsy:? Colonic mucosa with lymphoid aggregates and no specific change; no colitis, granulomas or dysplasia.? C.? Colon, rectum, biopsy:? Colonic mucosa with lymphoid aggregates and minimal hyperplastic changes, otherwise no specific change; no colitis/proctitis, granulomas or dysplasia.? 04/23/23: Again, GI sx are more or less unchanged. Has periumbilical abd pain assoc with multiple loose BMs/ day. Pain not changed by passing the BM. No blood in stool. Has not noticed much perianal discharge in the last few weeks. CTE and colo findings reviewed with the pt - briefly no inflammatory activity noted. No obvious fistula or draining abscess noted. 08/31/23: Following up after getting a triple phased CT to follow up on abnormal CTE that showed a 1 cm enhancing lesion. Pt has a metallic foreign body subdermally in his chest of unknown origin due to which he is unable to get an MRI. Currently, no new GI sx. Here with his to discuss next step for eval of this 1 cm lesion. Of note - recent labs show TSPOT pos??? previously reports this was negative when it was checked by his pattern molder prior to starting him on Humira for psoriasis. In terms of ?? anal fistula vs abscess reports that a week after he was seen by Dr Garrido and JASSI was negative, it re-appeared and started draining again. They have not contacted his office re this. 12/07/23: Liver lesion is still under investigation. As patient is unable to have an MRI due to metallic foreign body in his chest, he is undergoing a nuclear scan to rule out hemangioma, before undergoing a biopsy of that lesion. 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 No fevers, chills, changes in appetite, changes in stool consistency, unintentional weight loss. [facility] Medical History Sleep apnea Ileorectal fistula Surgical History History of surgery H/O endoscopy H/O colonoscopy Social History Alcohol intake: current Patient Tobacco Use Status: Former Tobacco user Review of Systems Const All systems reviewed & are unremarkable except as noted in HPI and below Physical Exam Vital Signs: Last Vital Signs Pulse 72 12/07/23 12:09 BP 122/66 12/07/23 12:09 BMI result Body Mass Index 36.6 Gen appear: NAD HEENT: nonicteric, no cervical lymphadenopathy Chest: CTA CVS: Regular S1/S2 Abd: soft, nontender, nondistended, bowel sounds + Ext: no peripheral edema Neuro: A/Ox3, noted to move all extremities spontaneously Psych: interacting appropriately Assessment & Plan Assessment & Plan (1) Liver lesion: Code(s): K76.9 - Liver disease, unspecified Plan 1. Rectal bleeding: Given report of small, rose, painless rectal bleeding, most likely hemorrhoidal bleeding. Will get labs and CT scan to rule out infectious versus inflammatory colitis. Plan: - Will check labs to ensure amount of bleeding is not clinically significant/needs intervention. - GI panel and C diff - CT abdomen and pelvis with contrast 2. Liver lesion: Incidentally noted on CTE. Unable to MRI due to metallic FB in R side of the chest. CT triple phase was also not able to characterize this fully. Nuclear scan to rule out hemangioma ordered before needle biopsy can be attempted. 3. TSPOT pos Seeing Infectious diseases and started on isoniazid From prev visit re ?Crohns: Discussed with the pt at this time there is no evidence of active inflammatory bowel disease based on work up above. While I am not able to see an established histological dx of crohns, this is confounded by his longstanding hx of biologic use for psoriasis - i.e current colo was done on humira with drug level 9.2 in January. Prior to this, colo in 2017 at [facility] [place] was likely done on golimumab. No prior records from initial reported dx in 1999[address] through Dr Lange's office. Therefore although it is possible that pt may not have Crohns disease to begin with, I am unable to distinguish it from histological remission Follow up in 4 weeks Orders: Orders Complete Blood Count no Diff Today K62.5 - Hemorrhage of anus and rectum GI Panel Today K62.5 - Hemorrhage of anus and rectum CDiff Gene PCR Today K62.5 - Hemorrhage of anus and rectum CT abdomen pelvis w IV con Today K62.5 - Hemorrhage of anus and rectum, R10.9 - Unspecified abdominal pain Liver Panel Today R10.9 - Unspecified abdominal pain Coding Level of Care Code Est Pt Level 4 (61522) Diagnoses Liver lesion K76.9
[2023-12-07 12:09] VITALS: BP 122/66; PULSE 72; BMI 36.6
== END 2023-12-07 12:49 | disposition home or self-care (01) ==
PROVIDERS: PCP Internal Medicine; Visit Provider Internal Medicine
DX: K76.9 Liver disease, unspecified (principal)
CPT/HCPCS: 99214

== ENCOUNTER 2023-12-18 14:11 | Outpatient (REF) | payer OTHER, SELFPAY ==
--- NOTE | ~2023-12-18 | CT_ITS ---
EXAMINATION: CT ABDOMEN AND PELVIS WITH CONTRAST CLINICAL INFORMATION: Anorectal hemorrhage. COMPARISON: Abdominal ultrasound dated 09/14/2023; CT abdomen dated 08/10/2023; CT enterography dated 03/09/2023. TECHNIQUE: Multidetector volumetric images were obtained from the superior aspect of the liver through the pubic symphysis following administration 85 mL of Omnipaque 350 intravenous contrast. Sagittal and coronal reformatted images were obtained on the technologist's workstation. Oral contrast: No This CT examination was performed using dose optimization techniques as appropriate, variously including the following: *Automated exposure control *Adjustment of mA and/or kV according to patient size (this includes techniques or standardized protocols for targeted exams where dose is matched to indication/reason for exam; i.e. extremities or head) *Use of iterative reconstruction technique DLP: 825 mGy-cm FINDINGS: LUNG BASES: At the lateral left base (8:20), a 5 mm noncalcified subpleural nodule is seen. This is stable from the CT examination dated 03/09/2023. LIVER, GALLBLADDER, AND BILIARY TREE: The liver is normal in size, shape, and attenuation. At the right hepatic dome (4:160), a 1.2 cm benign, simple cyst is redemonstrated. Within the hepatic tail posteriorly (4:331), an 8 mm low-attenuation cyst is seen with fine septation. This is stable from 03/09/2023 (7:333). No biliary ductal dilatation is present. The gallbladder is unremarkable with no evidence of radiopaque gallstones, gallbladder wall thickening, or obvious pericholecystic inflammatory changes. PANCREAS: Unremarkable. SPLEEN: Unremarkable. ADRENAL GLANDS: Unremarkable. KIDNEYS AND URETERS: The kidneys are normal in size, shape, and attenuation. At the lower pole of the right kidney (4:271), a 7 mm nonobstructing calculus is seen. No perinephric stranding. BLADDER: Unremarkable. GASTROINTESTINAL TRACT: There is mild diverticulosis, without acute diverticulitis. Mild wall thickening is suspected of the distal sigmoid and proximal rectum, on imaging limited by noncontrast technique. No focal wall lesion is noted. There is no obstruction, free intraperitoneal air or abscess. The vermiform appendix appears normal. ABDOMINAL WALL: There is a minimal fat-containing umbilical hernia. There are very small fat-containing bilateral inguinal hernias. LYMPH NODES: Normal. VASCULAR: Unremarkable. PELVIC VISCERA: The prostate and seminal vesicles are unremarkable. OSSEOUS STRUCTURES: There is marked degenerative disc disease at L4-L5 and L5-S1, with vacuum disc phenomenon. There is multi-level thoracolumbar spondylosis. No acute or aggressive osseous finding is noted. CT/CT abdomen pelvis w IV con IMPRESSION: 1. Mild wall thickening is suspected of the distal sigmoid and proximal rectum on imaging limited by noncontrast technique. There is mild diverticulosis, without acute diverticulitis. No focal colonic wall lesion is seen. If of continued clinical concern, this can be further evaluated with a barium enema or direct colonoscopic visualization. 2. A benign, simple cyst is redemonstrated towards the hepatic dome, and there is a stable mildly complex hepatic cyst with fine septation. 3. A 5 mm noncalcified subpleural nodule is seen at the lateral left base, unchanged from 03/09/2023. According to the UPDATED 2017 Fleischner Society recommendations, the advised follow-up imaging for solid nodules < 6 mm is: LOW RISK PATIENT: No routine follow-up. HIGH RISK PATIENT: Optional CT at 12 months. 4. There are small abdominal wall hernia defects, as detailed. 5. There is marked degenerative disc disease at L4-L5 and L5-S1. No aggressive osseous lesion is seen. Fleischner guidelines were followed.
[2023-12-18] MEDS: iohexoL 350 MG/ML 100 ML INFUS..BTL IV (14:59)
[2023-12-19 10:17] LABS: Creatinine POC 0.8 mg/dL (0.5-1.4); GFR POC > 60
== END 2023-12-18 14:12 | disposition home or self-care (01) ==
LOC: HO.CT 14:11
PROVIDERS: PCP Internal Medicine; Visit Provider Internal Medicine
DX: K52.9 Noninfective gastroenteritis and colitis, unspecified (principal); R10.9 Unspecified abdominal pain
CPT/HCPCS: 74177; 82565; Q9967

== ENCOUNTER → 2023-12-19 | Outpatient (REF) | payer OTHER, SELFPAY ==
--- NOTE | ~2023-12-19 | NM_ITS ---
EXAMINATION: PLANAR AND SPECT/CT LIVER BLOOD POOL CLINICAL INFORMATION: Liver lesions on prior CT scan. COMPARISON: No previous liver blood pool study is available for comparison. TECHNIQUE: Multiple gamma scintillation camera images of the abdomen were performed immediately and 1 hour following the intravenous administration of 25 mCi Tc-99m labeled red blood cells. Additional SPECT images of the abdomen were also obtained. Single photon emission tomography (SPECT) of the abdomen was performed using a hybrid SPECT/CT scanner acquiring 96 projections of 29 seconds each over 360 degrees using a noncircular orbit and an acquisition matrix of 128 x 128. Transverse, coronal and sagittal projections and a cine volume were reconstructed. Nondiagnostic CT images were obtained for attenuation correction and localization. FINDINGS: PLANAR IMAGES: The liver is normal in size, shape, and position. There is homogeneous distribution of activity within the liver. No focal abnormalities are noted. The spleen is normal in size, shape and position. The intensity of the spleen compared to the liver is normal, with the spleen similar in intensity to the liver. Cardiac blood pool activity is well visualized and is more intense than the liver and spleen. There is no significant change in the appearance of the liver on the delayed images compared to the immediate post injection images. SPECT IMAGES: The liver is normal in size, shape and position. There is homogeneous distribution of activity within the liver with no abnormal foci of increased or decreased activity present. The spleen is also normal in size and shape and is homogeneous. There are no foci of abnormal activity visualized outside the liver or spleen. The nondiagnostic CT images obtained for attenuation correction and localization show no abnormalities. The small hypodensities visible on the 12/18/2023 and 08/10/[address] scans, both performed with intravenous contrast, do not show the small hypodensities visualized on the IV contrast enhanced CT images. NM/NM hemangioma scan IMPRESSION: Normal planar and SPECT blood pool study of the liver. No foci of abnormal radiocolloid activity are visualized in the liver or elsewhere in the abdomen. All of the activity visualized appears physiological. There is no abnormal blood pool activity visualized on any of these images at the sites of the small hypodensities visualized on the IV contrast enhanced diagnostic CT studies of 08/10/2013 and 12/18/2023. These small lesions may be below the resolution of these SPECT images, and no abnormalities at these sites are present.
== END ==
LOC: HO.NUCMED
PROVIDERS: PCP Internal Medicine; Visit Provider Internal Medicine
DX: K76.9 Liver disease, unspecified (principal)
CPT/HCPCS: 78202; A9560; J1644

== ENCOUNTER 2024-01-04 12:34 | Outpatient (AMB) | payer OTHER, SELFPAY ==
--- NOTE | 2024-01-04 12:42 | MHC.OFFVIS ---
Intake Vital Signs 01/04/24 12:45 Height 5 ft 5 in Weight 222 lb 10.67 oz BMI 37.0 BP 111/60 Blood Pressure Location Lt brachial Position Sitting Pulse 65 Intake Visit Reasons: 4 week follow up Intake Note: Luis presents in the office as a 4 week follow up. CC: He states that he is always in pain. 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 He states it is just there. Electronic Equipment Set Up Operator Required: No Allergies No Known Allergies Allergy (Verified 01/04/24 12:47) HPI HPI Comments History of Present Illness Details This is a 52y.o M with psoriasis on Humira who is here for follow up. Previously was being seen for ? crohns however based on review of [place] [facility] [place] work [place] done here [place] [facility], no evidence of IBD so far. Main reason for follow up today is rectal bleeding . IBD history: Type: Crohns Location: Ilioanal Age/year of diagnosis: 1987/ y.o Presenting sx: Initially had an anal fistula in 1987 however at that time was not given a dx of Crohns when he was seen at [facility]. Then started having abd pain with diarrhea with urgency with blood in stool starting [address] Lange in 2007 and while initial work up was negative per his report he did get started on Remicade x 2 years (which then got discontinued as it stopped working). Pt fell off the grid as his GI physician changed practice, he then established care with Dr Avina at [facility] around 2015, and again lost to follow up when physician changed practice. Previous medications: Remicade [id number], Symponi 2015 (a few months through Rheum), Humira ([id number] stopped due to injection site pain), resumed Humira (since 2021) Current medications: Humira 40mg q2w Prev surgeries: Anal fistula x 3 [facility] (1987, 1999, 2015) Recent endoscopy: Colonoscopy 06/2017 (Dr. Avina):? Erosion in terminal ileum.? Colon otherwise normal.? Diverticulosis in sigmoid colon.? Hemorrhoids.? Path:? TI: Normal.? Right-sided colon: focal active colitis no granuloma or dysplasia.? Left-sided colon: Normal.? Rectum:? Normal. EIM: Psoriasis present since 1985 (humira was in fact started by Rheum Dr Hull, thinks Remicade is what helped the most) Fam hx: ? sister possibly Crohn's 01/08/23: Reports that his last colorectal surg was quite daunting and he was told he may need an ileostomy so he never followed up even though the fistula never fully healed. Has continues to have that anal fistula which intermittently flares up and becomes painful with bleeding x 1 week, every few months. Pt has never noticed any feculent discharge through this, only reports blood or clear discharge. In addition also has daily abdominal pain that is periumbilical which does not seem to be related to fistula or food. Does get better with passing BM. BMs are mostly loose without blood. Has 5-6 BMs/day with urgency, occ nocturnal sx. Tenesmus. Limits his out of home time and activity significantly. 01/29/23: Reports discharge has improved. Is not as frequent or as much. However, he is not able to feel a small perianal bump. Continues to have loose watery diarrhea. Labs reviewed. Adalilumab levels 9.2. Without any drug antibody. Vit D low, supplements sent. Fecal calpro pending (pt submitted just today). Records from [facility] pending. CXR does in fact show a metalic FB and therefore unable to MRI. 03/09/23: CT enterography: Mild diverticulosis of the colon. Otherwise unremarkable enterography exam. Fatty liver. 1 cm enhancing lesion high in the dome of the liver. Probable 2 additional liver cysts. Liver lesions could be further characterized with MRI if clinically indicated. Small left renal stones. 04/12/23: [place] Impression: 1. Normal colon and terminal ileum mucosa (biopsy) 2. Internal hemorrhoids Path: A.? Colon, right, biopsy:? Colonic mucosa with lymphoid aggregates and no specific change; no colitis, granulomas or dysplasia.? B.? Colon, left, biopsy:? Colonic mucosa with lymphoid aggregates and no specific change; no colitis, granulomas or dysplasia.? C.? Colon, rectum, biopsy:? Colonic mucosa with lymphoid aggregates and minimal hyperplastic changes, otherwise no specific change; no colitis/proctitis, granulomas or dysplasia.? 04/23/23: Again, GI sx are more or less unchanged. Has periumbilical abd pain assoc with multiple loose BMs/ day. Pain not changed by passing the BM. No blood in stool. Has not noticed much perianal discharge in the last few weeks. CTE and colo findings reviewed with the pt - briefly no inflammatory activity noted. No obvious fistula or draining abscess noted. 08/31/23: Following up after getting a triple phased CT to follow up on abnormal CTE that showed a 1 cm enhancing lesion. Pt has a metallic foreign body subdermally in his chest of unknown origin due to which he is unable to get an MRI. Currently, no new GI sx. Here with his to discuss next step for eval of this 1 cm lesion. Of note - recent labs show TSPOT pos??? previously reports this was negative when it was checked by his park interpretive ranger prior to starting him on Humira for psoriasis. In terms of ?? anal fistula vs abscess reports that a week after he was seen by Dr Garrido and JASSI was negative, it re-appeared and started draining again. They have not contacted his office re this. 12/07/23: Liver lesion is still under investigation. As patient is unable to have an MRI due to metallic foreign body in his chest, he is undergoing a nuclear scan to rule out hemangioma, before undergoing a biopsy of that lesion. 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 No fevers, chills, changes in appetite, changes in stool consistency, unintentional weight loss. 01/04/24: Awaiting metallic FB removal and then will have liver protocol MRI. Reports persistent rectal bleeding sometimes with clots. BMs have always been loose. Also has intermittent lower abd cramping, which he does not think is much different from when he last had the colo last year. [facility] Medical History Sleep apnea Ileorectal fistula Surgical History History of surgery H/O endoscopy H/O colonoscopy Social History Alcohol intake: current Patient Tobacco Use Status: Former Tobacco user Review of Systems Const All systems reviewed & are unremarkable except as noted in HPI and below Physical Exam Vital Signs: Last Vital Signs Pulse 65 01/04/24 12:45 BP 111/60 01/04/24 12:45 BMI result Body Mass Index 37.0 NAD Abd soft, nontender A/Ox3 normal gait Results Reviewed Results Reviewed: Mild wall thickening is suspected of the distal sigmoid and proximal rectum on imaging limited by noncontrast technique. There is mild diverticulosis, without acute diverticulitis. No focal colonic wall lesion is seen. If of continued clinical concern, this can be further evaluated with a barium enema or direct colonoscopic visualization. Assessment & Plan Assessment & Plan (1) Bright red rectal bleeding: Code(s): K62.5 - Hemorrhage of anus and rectum (2) Abdominal pain: Code(s): R10.9 - Unspecified abdominal pain (3) Liver lesion: Code(s): K76.9 - Liver disease, unspecified Plan 1. Rectal bleeding: Persistent. Last CBC did not show significant drop in H/H however given report of now clots and lower abd cramping as well, will get updated CBC as well as other labs as below arabella given ?hx of IBD and wall thickening seen in LEFT colon on CT scan. Plan: - CBC - Fecal calpro, GI panel, C Diff - Depending on above, may need repeat colo. 2. Liver lesion: Nuclear scan not consistent with hemangioma. Waiting to get scheduled for metallic FB in chest wall removal through IR and will then be booked for liver protocol MRI> 3. TSPOT pos Seeing Infectious diseases and started on isoniazid From prev visit re ?Crohns: Discussed with the pt at this time there is no evidence of active inflammatory bowel disease based on work up above. While I am not able to see an established histological dx of crohns, this is confounded by his longstanding hx of biologic use for psoriasis - i.e current colo was done on humira with drug level 9.2 in January. Prior to this, colo in 2017 at [facility] [place] likely done on golimumab. No prior records from initial reported dx in 1999s through Dr Lange's office. Therefore although it is possible that pt may not have Crohns disease to begin with, I am unable to distinguish it from histological remission Orders: Orders GI Panel 01/04/24 K62.5 - Hemorrhage of anus and rectum Calprotectin, Fecal 01/04/24 K62.5 - Hemorrhage of anus and rectum Complete Blood Count no Diff 01/04/24 K62.5 - Hemorrhage of anus and rectum CDiff Gene PCR 01/04/24 K62.5 - Hemorrhage of anus and rectum Medications: New dicyclomine 10 mg PO TID PRN 90 caps 0RF abdominal pain 60 days Coding Level of Care Code Est Pt Level 4 (42416) Diagnoses Bright red rectal bleeding K62.5 Abdominal pain R10.9 Liver lesion K76.9
[2024-01-04 12:45] VITALS: BP 111/60; PULSE 65; BMI 37.0
== END 2024-01-04 14:01 | disposition home or self-care (01) ==
PROVIDERS: PCP Internal Medicine; Visit Provider Internal Medicine
DX: K62.5 Hemorrhage of anus and rectum (principal); R10.9 Unspecified abdominal pain; K76.9 Liver disease, unspecified
CPT/HCPCS: 99214

== ENCOUNTER 2024-01-04 12:34 | Outpatient (REF) | payer OTHER, SELFPAY ==
[2024-01-04 13:57] LABS: Hematocrit 31.9 % (42.0-52.0); Hemoglobin 10.7 g/dl (14.0-18.0); Mean Corpuscular HGB Conc 33.5 g/dl (31.0-36.0); Mean Corpuscular Hemoglobin 29.9 pg (27.0-33.0); Mean Corpuscular Volume 89.1 fL (80.0-98.0); Mean Platelet Volume 9.1 fL (9.4-12.4); Platelet Count 375 X10*3/uL (160-400); Red Blood Count 3.58 X10*6/uL (4.60-5.80); White Blood Count 9.3 X10*3/uL (4.8-10.8)
== END 2024-01-04 12:35 | disposition home or self-care (01) ==
LOC: HO.LAB 12:34
PROVIDERS: PCP Internal Medicine; Visit Provider Internal Medicine
DX: R10.9 Unspecified abdominal pain (principal); K62.5 Hemorrhage of anus and rectum; K76.9 Liver disease, unspecified
CPT/HCPCS: 36415; 85027

== ENCOUNTER 2024-01-17 12:50 | Outpatient (REF) | payer OTHER, SELFPAY ==
--- NOTE | ~2024-01-17 | IR_ITS ---
History: 53-year-old male with foreign body in right chest of uncertain etiology. Procedure performed: Fluoroscopic guided foreign body removal Physician: Alma Pepper MD FSIR Anesthesia: 6 mL 1% lidocaine for local anesthesia Specimen: Small black radiopaque foreign body placed in specimen container and sent to pathology Drain: None Estimated blood loss: Minimal Complications: None Procedure in detail: Informed and written consent was obtained. The patient was positioned supine on the angiography table with sterile preparation of the right chest. Fluoroscopy demonstrated a small radiopaque foreign body in the subcutaneous tissues of the right lower chest anteriorly, which is estimated to measure less than 5 mm in diameter. 1% lidocaine was injected into the surrounding subcutaneous tissues. A small incision was made in the skin with a #11 blade. Blunt dissection under fluoroscopy was performed with mosquitos. We were able to grasp the foreign body and remove it. It was a small orthogonal black foreign body of uncertain etiology. It was placed in a specimen container. The pocket was irrigated and the incision was closed with interrupted 3-0 Vicryl suture and overlying Dermabond. A sterile dressing was applied. Summary: Successful fluoroscopic guided retrieval of a small radiopaque foreign body as described.
[2024-01-17 16:04] LABS: CDiff Gene PCR NEGATIVE (Negative)
[2024-01-18 10:18] LABS: Adenovirus F 40/41 Not Detected (Not Detect.); Astrovirus Not Detected (Not Detect.); Campylobacter Not Detected (Not Detect.); Cryptosporidium Not Detected (Not Detect.); Cyclospora cayetanensis Not Detected (Not Detect.); E. coli EAEC Not Detected (Not Detect.); E. coli EPEC Not Detected (Not Detect.); E. coli ETEC Detected (Not Detect.); E. coli STEC Not Detected (Not Detect.); Entamoeba histolytica Not Detected (Not Detect.); Giardia lamblia Not Detected (Not Detect.); Norovirus GI/GII Not Detected (Not Detect.); Plesiomonas shigelloides Not Detected (Not Detect.); Rotavirus A Not Detected (Not Detect.); Salmonella Not Detected (Not Detect.); Sapovirus Not Detected (Not Detect.); Shigella sp./EIEC Not Detected (Not Detect.); Vibrio Not Detected (Not Detect.); Vibrio Cholerae Not Detected (Not Detect.); Yersinia enterocolitica Not Detected (Not Detect.)
[2024-01-24 05:46] LABS: Calprotectin, Fecal 1990 mcg/g
== END 2024-01-17 12:51 | disposition home or self-care (01) ==
LOC: HO.XRAY 12:50
PROVIDERS: PCP Internal Medicine; Visit Provider Internal Medicine
DX: S20.159A Superficial foreign body of breast, unspecified breast, initial encounter (principal); K62.5 Hemorrhage of anus and rectum
CPT/HCPCS: 76000; 83993; 87493; 87507; 88304

== ENCOUNTER → 2024-01-17 12:52 | Outpatient (BNV) | payer OTHER, SELFPAY | PROVIDERS: PCP Internal Medicine; Visit Provider Radiology Vascular & Interventional Radiology | DX: S20.351A Superficial foreign body of right front wall of thorax, initial encounter (principal) | CPT/HCPCS: 10120; 76000 ==

== ENCOUNTER 2024-02-15 10:11 | Outpatient (REF) | payer OTHER, SELFPAY ==
--- NOTE | ~2024-02-15 | XR_ITS ---
Study: Orbital series. TECHNIQUE: Pre-MRI orbits. COMPARISON: None TECHNIQUE: 3 view orbital series No intraorbital radiopaque metallic foreign bodies are seen. Bony structures are intact. Sinuses and mastoids are free of disease. XR/XR pre mri screening IMPRESSION: No radiopaque intraorbital metallic foreign bodies.
--- NOTE | ~2024-02-15 | MR_ITS ---
EXAMINATION: MR ABDOMEN WITHOUT AND WITH CONTRAST CLINICAL INFORMATION: Liver disease. COMPARISON: CT abdomen/pelvis 12/18/2023 TECHNIQUE: MR abdomen was performed without and with use of 9 mL intravenous Gadavist gadolinium contrast. Postcontrast images are performed in multiphase dynamic sequences. Imaging was performed in 3 planes. FINDINGS: LUNG BASES: No pleural or pericardial effusion. LIVER, GALLBLADDER, AND BILIARY TREE: Loss of signal on opposed phase imaging compatible with hepatic steatosis. Scattered T2 hyperintense benign-appearing hepatic cysts, no imaging follow-up recommended. 1.0 cm T2 hyperintense T1 hypointense lesion at the hepatic dome demonstrates progressive peripheral discontinuous nodular enhancement likely representing hemangioma. Few scattered foci of early enhancement are not conspicuous on other phases possibly representing transient perfusion phenomena. No intra or extrahepatic biliary duct dilatation. The gallbladder is unremarkable. PANCREAS: No ductal dilatation. SPLEEN: Not enlarged. ADRENAL GLANDS: No adrenal mass. KIDNEYS AND URETERS: The kidneys are normal in size, shape, and enhance symmetrically. No hydronephrosis. No perinephric stranding. GASTROINTESTINAL TRACT: No bowel obstruction. No ascites or fluid collection. ABDOMINAL WALL: No significant hernia is appreciated. LYMPH NODES: No bulky lymphadenopathy. VASCULAR: Circumaortic left renal vein. Normal caliber abdominal aorta. MR/MR abdomen wo/w con IMPRESSION: Hepatic steatosis. 1.0 cm hepatic hemangioma at the hepatic dome.
[2024-02-15] MEDS: gadobutroL 10 ML VIAL IVPUSH (11:42)
== END 2024-02-15 10:12 | disposition home or self-care (01) ==
LOC: HO.MRI 10:11
PROVIDERS: PCP Internal Medicine; Visit Provider Internal Medicine
DX: K76.9 Liver disease, unspecified (principal)
CPT/HCPCS: 74183; A9585

== ENCOUNTER 2024-02-25 13:46 | Outpatient (AMB) | payer OTHER, SELFPAY ==
[2024-02-25 13:50] VITALS: BP 140/76; PULSE 80; BMI 35.2
--- NOTE | 2024-02-25 13:50 | MHC.OFFVIS ---
Vital Signs 02/25/24 13:50 Height 5 ft 5 in Weight 211 lb 10.3 oz BMI 35.2 BP 140/76 H Blood Pressure Location Lt brachial Position Sitting Pulse 80 Intake Visit Reasons: MRI follow up Intake Note: Luis presents in the office as a follow up MRI. CC: He states that he is here for follow up for MRI. He is not well he has pains in his stomach. He states that he is aways having diarrhea. States that is has gotten severely worse. Conversion Worker Required: No Allergies No Known Allergies Allergy (Verified 02/25/24 13:53) HPI Comments Details: This is a 52y.o M with psoriasis on Humira who is here for follow up. Previously was being seen for ? crohns however based on review of previous documentation at [facility] [place] and work up done here at [facility], no evidence of IBD so far. Main reason for follow up today is rectal bleeding . IBD history: Type: Crohns Location: Ilioanal Age/year of diagnosis: 1987/ y.o Presenting sx: Initially had an anal fistula in 1987 however at that time was not given a dx of Crohns when he was seen at [facility]. Then started having abd pain with diarrhea with urgency with blood in stool starting [address] Lange in 2007 and while initial work up was negative per his report he did get started on Remicade x 2 years (which then got discontinued as it stopped working). Pt fell off the grid as his GI physician changed practice, he then established care with Dr Avina at [facility] around 2015, and again lost to follow up when physician changed practice. Previous medications: Remicade [id number], Symponi 2016 (a few months through Rheum), Humira ([id number] stopped due to injection site pain), resumed Humira (since 2021) Current medications: Humira 40mg q2w Prev surgeries: Anal fistula x 3 [facility] (1987, 1999, 2015) Recent endoscopy: Colonoscopy 06/2017 (Dr. Avina):? Erosion in terminal ileum.? Colon otherwise normal.? Diverticulosis in sigmoid colon.? Hemorrhoids.? Path:? TI: Normal.? Right-sided colon: focal active colitis no granuloma or dysplasia.? Left-sided colon: Normal.? Rectum:? Normal. EIM: Psoriasis present since 1985 (humira was in fact started by Rheum Dr Della, thinks Remicade is what helped the most) Fam hx: ? sister possibly Crohn's 01/08/23: Reports that his last colorectal surg was quite daunting and he was told he may need an ileostomy so he never followed up even though the fistula never fully healed. Has continues to have that anal fistula which intermittently flares up and becomes painful with bleeding x 1 week, every few months. Pt has never noticed any feculent discharge through this, only reports blood or clear discharge. In addition also has daily abdominal pain that is periumbilical which does not seem to be related to fistula or food. Does get better with passing BM. BMs are mostly loose without blood. Has 5-6 BMs/day with urgency, occ nocturnal sx. Tenesmus. Limits his out of home time and activity significantly. 01/29/23: Reports discharge has improved. Is not as frequent or as much. However, he is not able to feel a small perianal bump. Continues to have loose watery diarrhea. Labs reviewed. Adalilumab levels 9.2. Without any drug antibody. Vit D low, supplements sent. Fecal calpro pending (pt submitted just today). Records from [facility] pending. CXR does in fact show a metalic FB and therefore unable to MRI. 03/09/23: CT enterography: Mild diverticulosis of the colon. Otherwise unremarkable enterography exam. Fatty liver. 1 cm enhancing lesion high in the dome of the liver. Probable 2 additional liver cysts. Liver lesions could be further characterized with MRI if clinically indicated. Small left renal stones. 04/12/23: [place] Impression: 1. Normal colon and terminal ileum mucosa (biopsy) 2. Internal hemorrhoids Path: A.? Colon, right, biopsy:? Colonic mucosa with lymphoid aggregates and no specific change; no colitis, granulomas or dysplasia.? B.? Colon, left, biopsy:? Colonic mucosa with lymphoid aggregates and no specific change; no colitis, granulomas or dysplasia.? C.? Colon, rectum, biopsy:? Colonic mucosa with lymphoid aggregates and minimal hyperplastic changes, otherwise no specific change; no colitis/proctitis, granulomas or dysplasia.? 04/23/23: Again, GI sx are more or less unchanged. Has periumbilical abd pain assoc with multiple loose BMs/ day. Pain not changed by passing the BM. No blood in stool. Has not noticed much perianal discharge in the last few weeks. CTE and colo findings reviewed with the pt - briefly no inflammatory activity noted. No obvious fistula or draining abscess noted. 08/31/23: Following up after getting a triple phased CT to follow up on abnormal CTE that showed a 1 cm enhancing lesion. Pt has a metallic foreign body subdermally in his chest of unknown origin due to which he is unable to get an MRI. Currently, no new GI sx. Here with his to discuss next step for eval of this 1 cm lesion. Of note - recent labs show TSPOT pos??? previously reports this was negative when it was checked by his gold tooler prior to starting him on Humira for psoriasis. In terms of ?? anal fistula vs abscess reports that a week after he was seen by Dr Garrido and JASSI was negative, it re-appeared and started draining again. They have not contacted his office re this. 12/07/23: Liver lesion is still under investigation. As patient is unable to have an MRI due to metallic foreign body in his chest, he is undergoing a nuclear scan to rule out hemangioma, before undergoing a biopsy of that lesion. 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 No fevers, chills, changes in appetite, changes in stool consistency, unintentional weight loss. 01/04/24: Awaiting metallic FB removal and then will have liver protocol MRI. Reports persistent rectal bleeding sometimes with clots. BMs have always been loose. Also has intermittent lower abd cramping, which he does not think is much different from when he last had the colo last year. 02/25/24: Here for follow up. Cont to have diarrhea - bleeding has slowed down. Remains OFF humira. MRI Abd resutls reviewed. Hepatic steatosis. 1.0 cm hepatic hemangioma at the hepatic dome. [facility] Medical History Sleep apnea Ileorectal fistula Surgical History History of surgery H/O endoscopy H/O colonoscopy Social History Alcohol intake: current Patient Tobacco Use Status: Former Tobacco user Review of Systems Const All systems reviewed & are unremarkable except as noted in HPI and below Physical Exam Vital Signs: Last Vital Signs Pulse 80 02/25/24 13:50 BP 140/76 H 02/25/24 13:50 BMI result Body Mass Index 35.2 NAD Nonicteric no abd distention A/oX3, no focal deficits Assessment & Plan Assessment & Plan (1) Abdominal pain: Code(s): R10.9 - Unspecified abdominal pain Category: Medical (2) Bright red rectal bleeding: Code(s): K62.5 - Hemorrhage of anus and rectum Category: Medical (3) Tuberculin skin test (TST) positive: Comment: Probable latent TB Code(s): R76.11 - Nonspecific reaction to tuberculin skin test without active tuberculosis Category: Medical (4) Liver hemangioma: Code(s): D18.03 - Hemangioma of intra-abdominal structures Category: Medical Plan #? Crohns Discussed with the pt that likely helping UNMASK underlying IBD now that hes off Humira >90 days and may explain why is having recurrence of bloody diarrhea. [place] to be booked as previously discussed. PEG prep sent to pharmacy. If histological dx confirmed on next bx, has had deep remission with Humira before (for psoriasis) and can be resumed - will likely need to be re-induced since will be off >6m. #Liver lesion Consistent with hemangioma. No further surveillance scan needed. Follow up after colo. Medications: New peg 3350-electrolytes 236-22.74-6.74 -5.86 gram (Golytely) as per split prep instructions, until fecal effluent is clear 240 mL PO Q10M 4,000 mL 0RF colonoscopy Coding Level of Care Code Est Pt Level 4 (59222) Diagnoses Abdominal pain R10.9 Bright red rectal bleeding K62.5 Tuberculin skin test (TST) positive R76.11 Liver hemangioma D18.03
== END 2024-02-25 14:13 | disposition home or self-care (01) ==
PROVIDERS: PCP Internal Medicine; Visit Provider Internal Medicine
DX: R10.9 Unspecified abdominal pain (principal); K62.5 Hemorrhage of anus and rectum; R76.11 Nonspecific reaction to tuberculin skin test without active tuberculosis; D18.03 Hemangioma of intra-abdominal structures
CPT/HCPCS: 99214

== ENCOUNTER → 2024-02-25 13:46 | Outpatient (BNVA) | payer OTHER, SELFPAY | PROVIDERS: PCP Internal Medicine; Visit Provider Internal Medicine ==

== ENCOUNTER 2024-02-28 06:24 | Day surgery (SDC) | payer OTHER, SELFPAY ==
[2024-02-28 06:34] VITALS: BMI 35.7
[2024-02-28 06:42] VITALS: BP 119/57; PULSE 84; RESP 16; TEMP 37.2; O2SAT 97
[2024-02-28] MEDS: Lactated Ringers 1,000 ML 80 ML IVCONT (07:00)
--- NOTE | 2024-02-28 07:28 | HO.ANESPROP2 ---
PMF Active Problems Active Problems: All Active Problems Liver hemangioma (Acute) Abdominal pain (Acute) Bright red rectal bleeding (Acute) Tuberculin skin test (TST) positive (Acute) Liver lesion (Acute) Skin lesion of hand (Acute) Metal foreign body in breast (Acute) Anal fistula (Acute) Past Medical History Medical History HTN (hypertension) Sleep apnea Ileorectal fistula Functional capacity: wheelchair bound Family History Family history of problems with anesthesia: No Surgical History Surgical History Hx of shoulder surgery History of surgery H/O endoscopy H/O colonoscopy History of Problems with Anesthesia: No Social History Social History Alcohol intake: current Patient Tobacco Use Status: Former Tobacco user Use of substances other than those prescribed or required for medical reasons: No Are you DNR?: No Advance Directives: No Advance Directives Information Provided: Yes Meds Allergies Allergy/AdvReac Type Severity Reaction Status Date / Time No Known Allergies Allergy Verified 02/25/24 13:53 Active Medications: Current Medications Lactated Ringer's (Lr) 1,000 mls @ 80 mls/hr IVCONT .[id number] ABBEY Last Admin: 02/28/24 07:00 Dose: 80 mls/hr Home Medications ?Medication ?Instructions ?Recorded ?Confirmed ?Last Taken ?Type verapamil 240 mg PO BEDTIME 04/23/23 02/28/24 Unknown History isoniazid 300 mg tablet 300 mg PO DAILY 01/04/24 02/28/24 Unknown History losartan 25 mg tablet 25 mg PO DAILY 02/25/24 02/28/24 Unknown History Exam Height,Weight and Vital Signs: Height 5 ft 5 in Weight 97.239 kg Last Vital Signs Temp 99.0 F 02/28/24 06:42 Pulse 84 02/28/24 06:42 Resp 16 02/28/24 06:42 BP 119/57 L 02/28/24 06:42 Pulse Ox 97 02/28/24 06:42 O2 Del Method Room Air 02/28/24 06:42 Airway Mallampati Class: III TM Dist: >3cm Neck ROM: Full Loose/Missing/Broken Teeth: No Heart: RRR Lungs: CTA Assessment and Plan Assessment Anesthesia Assessment: Anesthesia Plan Discussed and Chart Reviewed Final Anesthetic Review Family History of Problems with Anesthesia: No History of Problems with Anesthesia: No NPO: Yes ASA Class: III Final Preanesthetic Review: Meds/Allgs Chart Reviewed, Consent Obtained/Reviewed and Anes Risks/Benef Reviewed Patient Risk: Intermediate Procedure Risk: Low Anesthetic Plan Anesthetic Plan: MAC: Disposition: Standard PACU
--- NOTE | 2024-02-28 08:00 | MHC.SHP ---
Pre-Procedural Eval Section A - 24 Hr Update-Section A only Date of Service: 02/28/24 The patient is an INPATIENT: No The patient has been examined within 24 hours of the surgical procedure. The History & Physical has been completed within 30 days and I have reviewed it.: Yes Section B - Complete if H&P > 30 days Chief Complaint: Colitis Allergies: Allergies Allergy/AdvReac Type Severity Reaction Status Date / Time No Known Allergies Allergy Verified 02/25/24 13:53 Plan Diagnosis/Plan: Unchanged I have reviewed the history and physical and performed a pertinent physical examination on my patient. No changes have occurred unless specified. Time Spent With Patient Time: Total time managing care of this patient today ____ minutes.
--- NOTE | 2024-02-28 08:01 | P.OP_ITS ---
Operative Note Operative Note Date of Service: 02/28/24 Narrative: Procedure: Colonoscopy Indication: Colitis Endoscopist: Taylor Casey MD Anesthesia Provider: Martha Sanz CRNA Anesthesia type: MAC Instrument: Olympus [id number]-[id number] Consent: Indication, risks vs benefits, and alternatives were discussed with the patient who gave written informed consent to proceed. EKG, pulse, pulse oximetry and blood pressure were monitored throughout the procedure. Please see anesthesia flowsheet. Procedure: The patient was brought to the procedure room and placed in the left lateral decubitus position. IV medications were administered by the anesthesia provider in attendance. A digital rectal exam was performed which was abnormal due to finding of anal tag. A distal attachment cap was affixed to the tip of the scope and the colonoscope was then inserted through the anus and advanced through the colon to the cecum at 75 cm,and terminal ileum. Ileocecal valve and appendiceal orifice were identified. Mucosa was carefully examined under high definition white light as the instrument was slowly withdrawn in a retrograde panoramic fashion. Retroflexion was performed in rectum. The procedure was not difficult. There were no immediate obvious complications. The quality of the prep was BBPS: 3+2+3 = adequate Withdrawal time 14 minutes. Limitations: No limitations. Findings: Mucosa: Erythema, erosions and ulceration with cobblestoning was noted starting from anal canal up to distal transverse colon with endoscopically normal appearance of ascending colon and cecum. This was noted to be worse in L colon where mucosa was friable and spontaneously oozing. The ileocecal valve had a few erosions. Terminal ileum was intubated up to 30 cm and had scattered erythema and erosions. Cold forceps biopsies were taken from terminal ileum, ileocecal valve, cecum, ascending, transverse, descending, sigmoid colon and rectum. Protruding lesions: * Medium internal hemorrhoids without stigmata of recent bleeding. Impression: 1. Ileitis and colitis with friability and bleeding in L colon. 2. Internal hemorrhoids 3. Anal tag Recommendations: - Follow path results. - Start prednisone 60mg PO once daily x 14 days followed by a taper of 10mg/week - Once latent TB is treated will likely need to go back on anti TNF treatment
[2024-02-28 08:32] VITALS: BP 89/54; PULSE 65; RESP 16; TEMP 36.6; O2SAT 96
[2024-02-28 08:38] VITALS: BP 92/55
[2024-02-28 08:47] VITALS: BP 94/58; PULSE 61; RESP 16; O2SAT 96
[2024-02-28] MEDS: methylPREDNISolone Sod Succ 40 MG/ML VIAL 60 MG IVPUSH (08:57)
[2024-02-28 09:02] VITALS: BP 104/65; PULSE 61; RESP 16; TEMP 36.6; O2SAT 97
[2024-02-28 09:17] VITALS: BP 115/65; PULSE 63; RESP 18; TEMP 36.5; O2SAT 97
== END 2024-02-28 10:20 | disposition home or self-care (01) ==
PROVIDERS: PCP Internal Medicine; Visit Provider Internal Medicine
PROC: 0DJD8ZZ Inspection of Lower Intestinal Tract, Via Natural or Artificial Opening Endoscopic (ICD-10-PCS; CPT 45378; principal; 2024-02-28 08:00)
DX: K52.9 Noninfective gastroenteritis and colitis, unspecified (principal); K62.89 Other specified diseases of anus and rectum; K64.8 Other hemorrhoids; K64.4 Residual hemorrhoidal skin tags
CPT/HCPCS: 45380; 88305; J2704; J2919

== ENCOUNTER → 2024-02-28 06:24 | Outpatient (BNV) | payer OTHER, SELFPAY | PROVIDERS: PCP Internal Medicine; Visit Provider Internal Medicine | DX: K52.9 Noninfective gastroenteritis and colitis, unspecified (principal); K64.4 Residual hemorrhoidal skin tags; K64.8 Other hemorrhoids | CPT/HCPCS: 45380 ==

== ENCOUNTER 2024-03-13 15:41 | Outpatient (REF) | payer OTHER, SELFPAY ==
[2024-03-13 17:45] LABS: Hematocrit 29.6 % (42.0-52.0); Hemoglobin 9.4 g/dl (14.0-18.0); Mean Corpuscular HGB Conc 31.8 g/dl (31.0-36.0); Mean Corpuscular Hemoglobin 25.8 pg (27.0-33.0); Mean Corpuscular Volume 81.3 fL (80.0-98.0); Platelet Count 478 X10*3/uL (160-400); Red Blood Count 3.64 X10*6/uL (4.60-5.80); Red Cell Distribution Width 14.6 % (11.0-16.0); White Blood Count 12.4 X10*3/uL (4.8-10.8)
[2024-03-13 18:09] LABS: C Reactive Protein < 0.04 mg/dL (< or = 0.50)
== END 2024-03-13 15:42 | disposition home or self-care (01) ==
LOC: HO.LAB 15:41
PROVIDERS: PCP Internal Medicine; Visit Provider Internal Medicine
DX: K50.90 Crohn's disease, unspecified, without complications (principal)
CPT/HCPCS: 36415; 85027; 86140

== ENCOUNTER 2024-03-19 11:54 | Outpatient (REF) | payer OTHER, SELFPAY ==
[2024-03-19 13:41] LABS: Adenovirus F 40/41 Not Detected (Not Detect.); Astrovirus Not Detected (Not Detect.); Campylobacter Not Detected (Not Detect.); Cryptosporidium Not Detected (Not Detect.); Cyclospora cayetanensis Not Detected (Not Detect.); E. coli EAEC Not Detected (Not Detect.); E. coli EPEC Not Detected (Not Detect.); E. coli ETEC Detected (Not Detect.); E. coli STEC Not Detected (Not Detect.); Entamoeba histolytica Not Detected (Not Detect.); Giardia lamblia Not Detected (Not Detect.); Norovirus GI/GII Not Detected (Not Detect.); Plesiomonas shigelloides Not Detected (Not Detect.); Rotavirus A Not Detected (Not Detect.); Salmonella Not Detected (Not Detect.); Sapovirus Not Detected (Not Detect.); Shigella sp./EIEC Not Detected (Not Detect.); Vibrio Not Detected (Not Detect.); Vibrio Cholerae Not Detected (Not Detect.); Yersinia enterocolitica Not Detected (Not Detect.)
[2024-03-19 14:14] LABS: CDiff Gene PCR NEGATIVE (Negative)
[2024-03-27 02:18] LABS: Calprotectin, Fecal 2710 mcg/g
== END 2024-03-19 11:55 | disposition home or self-care (01) ==
LOC: HO.LNP 11:54
PROVIDERS: Visit Provider Internal Medicine
DX: K50.90 Crohn's disease, unspecified, without complications (principal)
CPT/HCPCS: 83993; 87493; 87507

== ENCOUNTER 2024-04-04 15:45 | Outpatient (AMB) | payer OTHER, SELFPAY ==
--- NOTE | 2024-04-04 15:48 | MHC.OFFVIS ---
Vital Signs 04/04/24 15:50 Weight 224 lb 13.944 oz BP 144/78 H Blood Pressure Location Lt brachial Position Sitting Pulse 72 Intake Visit Reasons: f/u colonoscopy Intake Note: Luis presents in the office as a follow up colonoscopy. CC: He states that he is here for results. Stomach has been okay he thinks it is due to prednisone but he is having some bloating and cranky. Gore Inserter Required: No Allergies No Known Allergies Allergy (Verified 04/04/24 15:51) HPI Comments Details: This is a 52y.o M with psoriasis on Humira who is here for follow up. Previously was being seen for ? crohns however based on review of previous documentation [place] [facility] [place] done [place] [facility] no evidence of IBD so far. Main reason for follow up today is rectal bleeding . IBD history: Type: Crohns Location: [facility] Age/year of diagnosis: 1987/ y.o Presenting sx: Initially had an anal fistula in 1987 however at that time was not given a dx of Crohns when he was seen at [facility]. Then started having abd pain with diarrhea with urgency with blood in stool starting [address] Lange in 2007 and while initial work up was negative per his report he did get started on Remicade x 2 years (which then got discontinued as it stopped working). Pt fell off the grid as his GI physician changed practice, he then established care with Dr Avina at [facility] around 2015, and again lost to follow up when physician changed practice. Previous medications: Remicade [id number], Symponi 2016 (a few months through Rheum), Humira ([id number] stopped due to injection site pain), resumed Humira (since 2021) Current medications: Humira 40mg q2w Prev surgeries: Anal fistula x 3 [facility] (1987, 1999, 2015) Recent endoscopy: Colonoscopy 06/2017 (Dr. Avina):? Erosion in terminal ileum.? Colon otherwise normal.? Diverticulosis in sigmoid colon.? Hemorrhoids.? Path:? TI: Normal.? Right-sided colon: focal active colitis no granuloma or dysplasia.? Left-sided colon: Normal.? Rectum:? Normal. EIM: Psoriasis present since 1985 (humira was in fact started by Rheum Dr Hull, thinks Remicade is what helped the most) Fam hx: ? sister possibly Crohn's 01/08/23: Reports that his last colorectal surg was quite daunting and he was told he may need an ileostomy so he never followed up even though the fistula never fully healed. Has continues to have that anal fistula which intermittently flares up and becomes painful with bleeding x 1 week, every few months. Pt has never noticed any feculent discharge through this, only reports blood or clear discharge. In addition also has daily abdominal pain that is periumbilical which does not seem to be related to fistula or food. Does get better with passing BM. BMs are mostly loose without blood. Has 5-6 BMs/day with urgency, occ nocturnal sx. Tenesmus. Limits his out of home time and activity significantly. 01/29/23: Reports discharge has improved. Is not as frequent or as much. However, he is not able to feel a small perianal bump. Continues to have loose watery diarrhea. Labs reviewed. Adalilumab levels 9.2. Without any drug antibody. Vit D low, supplements sent. Fecal calpro pending (pt submitted just today). Records from [facility] pending. CXR does in fact show a metalic FB and therefore unable to MRI. 03/09/23: CT enterography: Mild diverticulosis of the colon. Otherwise unremarkable enterography exam. Fatty liver. 1 cm enhancing lesion high in the dome of the liver. Probable 2 additional liver cysts. Liver lesions could be further characterized with MRI if clinically indicated. Small left renal stones. 04/12/23: [facility] Impression: 1. Normal colon and terminal ileum mucosa (biopsy) 2. Internal hemorrhoids Path: A.? Colon, right, biopsy:? Colonic mucosa with lymphoid aggregates and no specific change; no colitis, granulomas or dysplasia.? B.? Colon, left, biopsy:? Colonic mucosa with lymphoid aggregates and no specific change; no colitis, granulomas or dysplasia.? C.? Colon, rectum, biopsy:? Colonic mucosa with lymphoid aggregates and minimal hyperplastic changes, otherwise no specific change; no colitis/proctitis, granulomas or dysplasia.? 04/23/23: Again, GI sx are more or less unchanged. Has periumbilical abd pain assoc with multiple loose BMs/ day. Pain not changed by passing the BM. No blood in stool. Has not noticed much perianal discharge in the last few weeks. CTE and colo findings reviewed with the pt - briefly no inflammatory activity noted. No obvious fistula or draining abscess noted. 08/31/23: Following up after getting a triple phased CT to follow up on abnormal CTE that showed a 1 cm enhancing lesion. Pt has a metallic foreign body subdermally in his chest of unknown origin due to which he is unable to get an MRI. Currently, no new GI sx. Here with his to discuss next step for eval of this 1 cm lesion. Of note - recent labs show TSPOT pos??? previously reports this was negative when it was checked by his social worker assistant prior to starting him on Humira for psoriasis. In terms of ?? anal fistula vs abscess reports that a week after he was seen by Dr Garrido and JASSI was negative, it re-appeared and started draining again. They have not contacted his office re this. 12/07/23: Liver lesion is still under investigation. As patient is unable to have an MRI due to metallic foreign body in his chest, he is undergoing a nuclear scan to rule out hemangioma, before undergoing a biopsy of that lesion. 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 No fevers, chills, changes in appetite, changes in stool consistency, unintentional weight loss. 01/04/24: Awaiting metallic FB removal and then will have liver protocol MRI. Reports persistent rectal bleeding sometimes with clots. BMs have always been loose. Also has intermittent lower abd cramping, which he does not think is much different from when he last had the colo last year. 02/25/24: Here for follow up. Cont to have diarrhea - bleeding has slowed down. Remains OFF humira. MRI Abd resutls reviewed. Hepatic steatosis. 1.0 cm hepatic hemangioma at the hepatic dome. 02/28/24: [facility] 1. Ileitis and colitis with friability and bleeding in L colon. 2. Internal hemorrhoids 3. Anal tag Path: A. Terminal ileum, biopsy: Focally active ileitis. B. Ileocecal valve, biopsy: Ileocolonic mucosa within normal limits. C. Cecum, biopsy: Colonic mucosa within normal limits. D. Colon, ascending, biopsy: Colonic mucosa within normal limits. E. Colon, transverse, biopsy: Chronic, mildly active, colitis. F. Colon, descending, biopsy: Chronic, mildly active, colitis. G. Colon, sigmoid, biopsy: Chronic, mildly active, colitis. H. Rectum, biopsy: Chronic, severely active, proctitis 04/04/24: Seen in follow up after recent endoscopy which did confirm crohns. Was started on prednisone after the procedure. Currently on taper and on 30mg/day dosing. 5 BMs per day. No blood. No abd cramping. Cont to be fatigued but not as bad as before. Completing latent TB treatment soon. PFSH Medical History HTN (hypertension) Sleep apnea Ileorectal fistula Surgical History Hx of shoulder surgery History of surgery H/O endoscopy H/O colonoscopy Social History Alcohol intake: current Patient Tobacco Use Status: Former Tobacco user Review of Systems Const All systems reviewed & are unremarkable except as noted in HPI and below Physical Exam Vital Signs: Last Vital Signs Pulse 72 04/04/24 15:50 BP 144/78 H 04/04/24 15:50 No apparent distress Nonicteric Abdomen soft, nondistended Alert and oriented x3, normal gait Assessment & Plan Assessment & Plan (1) Abdominal pain: Code(s): R10.9 - Unspecified abdominal pain Category: Medical (2) Bright red rectal bleeding: Code(s): K62.5 - Hemorrhage of anus and rectum Category: Medical (3) Tuberculin skin test (TST) positive: Comment: Probable latent TB Code(s): R76.11 - Nonspecific reaction to tuberculin skin test without active tuberculosis Category: Medical (4) Crohn's disease: Code(s): K50.90 - Crohn's disease, unspecified, without complications Category: Medical (5) Fatigue: Code(s): R53.83 - Other fatigue Category: Medical Plan #Crohns disease: Discussed with the pt that likely was in histological remission with Humira when prev endoscopy in 2022 was performed. ANd now that he was off Humira for latent TB, that unmasked underlying IBD. Pt interested in exploring alt therapy to Humira arabella has been off it for 6 months. Given underlying hx of psoriasis, would prefer infliximab (hx of secondary non response) vs stelara or skyrizi. Pt agreeable to skyrizi. This can be started after tx for latent TB completed. Biologic counseling: Pt was informed the indication, risks and benefits of starting risankizumab as well as the risks of not being on tx (progression of crohns, bleeding, stricture, perforation, surgery etc). We reviewed elevated risks of infection, infusion site reaction, allergic reaction and elevated LFTs which we will be monitoring frequently. Plan: - Cont pred taper as prescribed - Will initiate PA for Skyrizi - Once approved, to be started after latent TB tx completed - CBC, CMP, CRP and fecal calpro to be checked at 12w [facility]isse as a trough lab (reminder set) - Pt was also advised to let his Mental Health Program Director Haroon Flynn [employer] know of the change in therapy #Fatigue Could be secondary to active crohns vs anemia vs low Vit D Plan: - Labs ordered #Liver lesion Consistent with hemangioma. No further surveillance scan needed. Follow up 2 months Orders: Orders Complete Blood Count no Diff 04/08/24 D84.9 - Immunodeficiency, unspecified Ferritin 04/08/24 K50.90 - Crohn's disease, unspecified, without complications IRON PROFILE 04/08/24 K50.90 - Crohn's disease, unspecified, without complications Liver Panel 04/08/24 D84.9 - Immunodeficiency, unspecified Vitamin D 25-OH Total 04/08/24 K50.90 - Crohn's disease, unspecified, without complications Referrals Infusion Center Notification K50.90 - Crohn's disease, unspecified, without complications Coding Level of Care Code Est Pt Level 5 (21288) Diagnoses Abdominal pain R10.9 Bright red rectal bleeding K62.5 Tuberculin skin test (TST) positive R76.11 Crohn's disease K50.90 Fatigue R53.83
[2024-04-04 15:50] VITALS: BP 144/78; PULSE 72
== END 2024-04-04 16:19 | disposition home or self-care (01) ==
PROVIDERS: PCP Internal Medicine; Visit Provider Internal Medicine
DX: K50.90 Crohn's disease, unspecified, without complications (principal); K62.5 Hemorrhage of anus and rectum; R76.11 Nonspecific reaction to tuberculin skin test without active tuberculosis
CPT/HCPCS: 99214

== ENCOUNTER → 2024-04-04 15:45 | Outpatient (BNVA) | payer OTHER, SELFPAY | PROVIDERS: PCP Internal Medicine; Visit Provider Internal Medicine ==

== ENCOUNTER 2024-04-08 13:25 | Outpatient (REF) | payer OTHER, SELFPAY ==
[2024-04-08 14:04] LABS: Hematocrit 32.3 % (42.0-52.0); Hemoglobin 9.6 g/dl (14.0-18.0); Mean Corpuscular HGB Conc 29.7 g/dl (31.0-36.0); Mean Corpuscular Hemoglobin 23.4 pg (27.0-33.0); Mean Corpuscular Volume 78.6 fL (80.0-98.0); Mean Platelet Volume 8.8 fL (9.4-12.4); Platelet Count 406 X10*3/uL (160-400); Red Blood Count 4.11 X10*6/uL (4.60-5.80); Red Cell Distribution Width 16.5 % (11.0-16.0); White Blood Count 9.5 X10*3/uL (4.8-10.8)
[2024-04-08 14:28] LABS: Alanine Aminotransferase 26 U/L (0-40); Albumin Level 4.1 g/dL (3.5-5.0); Alkaline Phosphatase 65 U/L (39-117); Aspartate Amino Transferase 14 U/L (5-37); Bilirubin Direct 0.1 mg/dL (0.0-0.5); Bilirubin Total 0.4 mg/dL (0.0-1.0); Iron 35 mcg/dL (45-160); Percent Iron Saturation 8 % (15-50); Total Iron Binding Capacity 420 mcg/dL (228-428); Total Protein 6.9 g/dL (6.5-8.0); Unsaturated Iron Binding 385 ug/dL
[2024-04-08 14:48] LABS: Ferritin 13 ng/mL (20-250); Vitamin D 25-OH Total 17.8 ng/mL (>30)
== END 2024-04-08 13:26 | disposition home or self-care (01) ==
LOC: HO.LAB 13:25
PROVIDERS: Internal Medicine; PCP Internal Medicine; Visit Provider Internal Medicine
DX: K50.90 Crohn's disease, unspecified, without complications (principal); D84.9 Immunodeficiency, unspecified
CPT/HCPCS: 36415; 80076; 82306; 82728; 83540; 85027

== ENCOUNTER 2024-04-11 13:03 | Outpatient (AMB) | payer OTHER, SELFPAY ==
[2024-04-11 13:11] VITALS: PULSE 68; TEMP 36.9; O2SAT 98
--- NOTE | 2024-04-11 13:11 | MHC.OFFVIS ---
Vital Signs 04/11/24 13:11 Weight 230 lb Pulse 68 Pulse Source Pulse Oximeter Temp 98.5 F Temp Source Oral Pulse Oximetry (%) 98 Oxygen Delivery Method Room Air Intake Visit Reasons: follow up labs 6 months Allergies No Known Allergies Allergy (Verified 04/11/24 13:11) HPI HPI follow up labs 6 months: Details: He has no concerns, He took INH and B6. PFSH Medical History HTN (hypertension) Sleep apnea Ileorectal fistula Surgical History Hx of shoulder surgery History of surgery H/O endoscopy H/O colonoscopy Social History Alcohol intake: current Patient Tobacco Use Status: Former Tobacco user Review of Systems Const All systems reviewed & are unremarkable except as noted in HPI and below Physical Exam Vital Signs: Last Vital Signs Temp 98.5 F 04/11/24 13:11 Pulse 68 04/11/24 13:11 Pulse Ox 98 04/11/24 13:11 Oxygen Delivery Method Room Air 04/11/24 13:11 Const General: cooperative HEENT Head: Yes normal to inspection Face and sinus: Yes normal facial exam Mouth: Normal oral and palatal mucosa present Teeth and gingiva: dentition normal Eyes General: appearance normal, both eyes and all related structures Pupils: Equal, round and reactive pupils present Resp Effort & Inspection: normal respiratory effort Cardio Rate: regular rate Rhythm: regular rhythm GI Palpation (GI): Soft to palpation and nontender General: Yes no CVA tenderness Back/Spine/Pelvis Back: no CVA tenderness Skin General skin exam: no rashes or lesions noted Neuro General: moves all extremities Cranial nerves: Yes Equal, round and reactive pupils present Extrem General: Yes normal to inspection Psych Appearance: grossly normal Assessment & Plan Assessment & Plan (1) 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
== END 2024-04-11 14:19 | disposition home or self-care (01) ==
PROVIDERS: PCP Internal Medicine; Visit Provider Internal Medicine
DX: R76.11 Nonspecific reaction to tuberculin skin test without active tuberculosis (principal)
CPT/HCPCS: 99213

== ENCOUNTER → 2024-04-11 13:03 | Outpatient (BNVA) | payer OTHER, SELFPAY | PROVIDERS: PCP Internal Medicine; Visit Provider Internal Medicine ==

== ENCOUNTER 2024-06-13 12:53 | Outpatient (AMB) | payer OTHER, SELFPAY ==
[2024-06-13 12:58] VITALS: BP 145/72; PULSE 63; BMI 37.1
--- NOTE | 2024-06-13 12:58 | MHC.OFFVIS ---
Vital Signs 06/13/24 12:58 Height 5 ft 5 in Weight 223 lb 1.725 oz BMI 37.1 BP 145/72 H Blood Pressure Location Lt brachial Position Sitting Pulse 63 Intake Visit Reasons: 2 month follow up Intake Note: Luis presents in the office as a follow up labs and chron's disease. CC: Patient reports loose stools, and a little abdominal discomfort sometimes. Baseball Winder Required: No Allergies No Known Allergies Allergy (Verified 06/13/24 13:00) HPI Comments Details: This is a 52y.o M with psoriasis on Humira who is here for follow up. Previously was being seen for ? crohns however based [place] [facility] [place] [facility] [place] no evidence of IBD so far. Main reason for follow up today is rectal bleeding . IBD history: Type: Crohns Location: [place] Age/year of diagnosis: 1987/ y.o Presenting sx: Initially had an anal fistula in 1987 however at that time was not given a dx of Crohns when he was seen at [facility]. Then started having abd pain with diarrhea with urgency with blood in stool starting [address] Lange in 2007 and while initial work up was negative per his report he did get started on Remicade x 2 years (which then got discontinued as it stopped working). Pt fell off the grid as his GI physician changed practice, he then established care with Dr Avina at [facility] around 2015, and again lost to follow up when physician changed practice. Previous medications: Remicade [id number], Symponi 2016 (a few months through Rheum), Humira ([id number] stopped due to injection site pain), resumed Humira (since 2021) Current medications: Humira 40mg q2w Prev surgeries: Anal fistula x 3 [facility] (1987, 1999, 2015) Recent endoscopy: Colonoscopy 06/2017 (Dr. Avina):? Erosion in terminal ileum.? Colon otherwise normal.? Diverticulosis in sigmoid colon.? Hemorrhoids.? Path:? TI: Normal.? Right-sided colon: focal active colitis no granuloma or dysplasia.? Left-sided colon: Normal.? Rectum:? Normal. EIM: Psoriasis present since 1985 (humira was in fact started by Rheum Dr Hull, thinks Remicade is what helped the most) Fam hx: ? sister possibly Crohn's 01/08/23: Reports that his last colorectal surg was quite daunting and he was told he may need an ileostomy so he never followed up even though the fistula never fully healed. Has continues to have that anal fistula which intermittently flares up and becomes painful with bleeding x 1 week, every few months. Pt has never noticed any feculent discharge through this, only reports blood or clear discharge. In addition also has daily abdominal pain that is periumbilical which does not seem to be related to fistula or food. Does get better with passing BM. BMs are mostly loose without blood. Has 5-6 BMs/day with urgency, occ nocturnal sx. Tenesmus. Limits his out of home time and activity significantly. 01/29/23: Reports discharge has improved. Is not as frequent or as much. However, he is not able to feel a small perianal bump. Continues to have loose watery diarrhea. Labs reviewed. Adalilumab levels 9.2. Without any drug antibody. Vit D low, supplements sent. Fecal calpro pending (pt submitted just today). Records from [facility] pending. CXR does in fact show a metalic FB and therefore unable to MRI. 03/09/23: CT enterography: Mild diverticulosis of the colon. Otherwise unremarkable enterography exam. Fatty liver. 1 cm enhancing lesion high in the dome of the liver. Probable 2 additional liver cysts. Liver lesions could be further characterized with MRI if clinically indicated. Small left renal stones. 04/12/23: [place] Impression: 1. Normal colon and terminal ileum mucosa (biopsy) 2. Internal hemorrhoids Path: A.? Colon, right, biopsy:? Colonic mucosa with lymphoid aggregates and no specific change; no colitis, granulomas or dysplasia.? B.? Colon, left, biopsy:? Colonic mucosa with lymphoid aggregates and no specific change; no colitis, granulomas or dysplasia.? C.? Colon, rectum, biopsy:? Colonic mucosa with lymphoid aggregates and minimal hyperplastic changes, otherwise no specific change; no colitis/proctitis, granulomas or dysplasia.? 04/23/23: Again, GI sx are more or less unchanged. Has periumbilical abd pain assoc with multiple loose BMs/ day. Pain not changed by passing the BM. No blood in stool. Has not noticed much perianal discharge in the last few weeks. CTE and colo findings reviewed with the pt - briefly no inflammatory activity noted. No obvious fistula or draining abscess noted. 08/31/23: Following up after getting a triple phased CT to follow up on abnormal CTE that showed a 1 cm enhancing lesion. Pt has a metallic foreign body subdermally in his chest of unknown origin due to which he is unable to get an MRI. Currently, no new GI sx. Here with his to discuss next step for eval of this 1 cm lesion. Of note - recent labs show TSPOT pos??? previously reports this was negative when it was checked by his research geneticist prior to starting him on Humira for psoriasis. In terms of ?? anal fistula vs abscess reports that a week after he was seen by Dr Garrido and JASSI was negative, it re-appeared and started draining again. They have not contacted his office re this. 12/07/23: Liver lesion is still under investigation. As patient is unable to have an MRI due to metallic foreign body in his chest, he is undergoing a nuclear scan to rule out hemangioma, before undergoing a biopsy of that lesion. 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 No fevers, chills, changes in appetite, changes in stool consistency, unintentional weight loss. 01/04/24: Awaiting metallic FB removal and then will have liver protocol MRI. Reports persistent rectal bleeding sometimes with clots. BMs have always been loose. Also has intermittent lower abd cramping, which he does not think is much different from when he last had the colo last year. 02/25/24: Here for follow up. Cont to have diarrhea - bleeding has slowed down. Remains OFF humira. MRI Abd resutls reviewed. Hepatic steatosis. 1.0 cm hepatic hemangioma at the hepatic dome. 02/28/24: [place] 1. Ileitis and colitis with friability and bleeding in L colon. 2. Internal hemorrhoids 3. Anal tag Path: A. Terminal ileum, biopsy: Focally active ileitis. B. Ileocecal valve, biopsy: Ileocolonic mucosa within normal limits. C. Cecum, biopsy: Colonic mucosa within normal limits. D. Colon, ascending, biopsy: Colonic mucosa within normal limits. E. Colon, transverse, biopsy: Chronic, mildly active, colitis. F. Colon, descending, biopsy: Chronic, mildly active, colitis. G. Colon, sigmoid, biopsy: Chronic, mildly active, colitis. H. Rectum, biopsy: Chronic, severely active, proctitis 04/04/24: Seen in follow up after recent endoscopy which did confirm crohns. Was started on prednisone after the procedure. Currently on taper and on 30mg/day dosing. 5 BMs per day. No blood. No abd cramping. Cont to be fatigued but not as bad as before. Completing latent TB treatment soon. 06/13/24: Started skyrizi induction on 04/28. 3rd induction dose coming up on 06/23. Abd pain resolved. Still has urgency. Has BMs 4-5 times a day, formed. Skin lesions from psoriasis had also improved, though starting to recur a bit. Pt reports low enrgy levels, fatigue and frequent headaches. Iron panel with low ferritin. Pt also reports another bout of peranal abscess which self drained. PFSH Medical History HTN (hypertension) Sleep apnea Ileorectal fistula Surgical History Hx of shoulder surgery History of surgery H/O endoscopy H/O colonoscopy Social History Alcohol intake: current Patient Tobacco Use Status: Former Tobacco user Review of Systems Const All systems reviewed & are unremarkable except as noted in HPI and below Physical Exam Vital Signs: Last Vital Signs Pulse 63 06/13/24 12:58 BP 145/72 H 06/13/24 12:58 BMI result Body Mass Index 37.1 No apparent distress Nonicteric Abdomen soft, nondistended Alert and oriented x3, normal gait small plaque like lesions with small blisters on fingers Assessment & Plan Assessment & Plan (1) Abdominal pain: Code(s): R10.9 - Unspecified abdominal pain Category: Medical (2) Crohn's disease: Code(s): K50.90 - Crohn's disease, unspecified, without complications Category: Medical (3) Fatigue: Code(s): R53.83 - Other fatigue Category: Medical (4) Iron deficiency anemia: Code(s): D50.9 - Iron deficiency anemia, unspecified Category: Medical Plan #Crohns disease: Discussed with the pt that likely was in histological remission with Humira when prev endoscopy in 2022 was performed. ANd now that he was off Humira for latent TB, that unmasked underlying IBD. Pt interested in exploring alt therapy to Humira arabella has been off it for 6 months. Skyrizi started April 2024 after tx for latent TB completed. Biologic counseling: Pt was informed the indication, risks and benefits of starting risankizumab as well as the risks of not being on tx (progression of crohns, bleeding, stricture, perforation, surgery etc). We reviewed elevated risks of infection, infusion site reaction, allergic reaction and elevated LFTs which we will be monitoring frequently. Plan: - Cont Skyrizi induction - Msg sent to RN for teaching of self-injector - CBC, CMP, CRP to be checked before next infusion - #BRADY ferrous sulphate Rxed. Recheck at next lab check and if still low, will Rx iron infusions. Follow up 2 months Orders: Orders IRON PROFILE 06/23/24 K50.90 - Crohn's disease, unspecified, without complications Complete Blood Count no Diff 06/23/24 K50.90 - Crohn's disease, unspecified, without complications Liver Panel 06/23/24 K50.90 - Crohn's disease, unspecified, without complications C Reactive Protein 06/23/24 K50.90 - Crohn's disease, unspecified, without complications Ferritin 06/23/24 K50.90 - Crohn's disease, unspecified, without complications Medications: New ferrous sulfate 325 mg PO DAILY 90 tabs 0RF Coding Level of Care Code Est Pt Level 5 (02906) Diagnoses Abdominal pain R10.9 Crohn's disease K50.90 Fatigue R53.83 Iron deficiency anemia D50.9
== END 2024-06-13 13:33 | disposition home or self-care (01) ==
PROVIDERS: PCP Internal Medicine; Visit Provider Internal Medicine
DX: K50.90 Crohn's disease, unspecified, without complications (principal); D50.9 Iron deficiency anemia, unspecified; R53.83 Other fatigue
CPT/HCPCS: 99214

== ENCOUNTER → 2024-06-13 12:53 | Outpatient (BNVA) | payer OTHER, SELFPAY | PROVIDERS: PCP Internal Medicine; Visit Provider Internal Medicine ==

== ENCOUNTER 2024-06-23 11:00 | Outpatient (RCR) | payer OTHER, SELFPAY ==
[2024-04-28 11:31] VITALS: BMI 36.6
[2024-04-28 11:33] VITALS: BP 124/77; PULSE 63; RESP 18; TEMP 37.2; O2SAT 96
[2024-04-28] MEDS: Risankizumab-rzaa 600 MG in Dextrose 5 % 250 ML 260 MG IV (12:13)
[2024-04-28] MEDS: 0.9 % Sodium Chloride Flush 10 ML SYRINGE 5 ML IVFLUSH (13:14)
[2024-06-02 09:38] VITALS: BP 123/74; PULSE 58; RESP 14; TEMP 37.4; O2SAT 96
[2024-06-02] MEDS: Risankizumab-rzaa 600 MG in Dextrose 5 % 250 ML 260 MG IV (10:03)
--- NOTE | 2024-06-02 10:07 | HO.INF ---
patient declines pre medications
[2024-06-02] MEDS: 0.9 % Sodium Chloride Flush 10 ML SYRINGE 5 ML IVFLUSH (11:11)
[2024-06-23 10:51] VITALS: BP 145/78; PULSE 64; RESP 20; TEMP 36.7; O2SAT 98
[2024-06-23] MEDS: Acetaminophen 325 MG TABLET 650 MG PO (12:04)
[2024-06-23] MEDS: ondansetron HCL 4 MG/2 ML VIAL IVPUSH (12:07)
[2024-06-23] MEDS: Risankizumab-rzaa 600 MG in Dextrose 5 % 250 ML 260 MG IV (12:14)
[2024-06-23] MEDS: 0.9 % Sodium Chloride Flush 10 ML SYRINGE 5 ML IVFLUSH (13:15)
== END 2024-06-23 14:18 | disposition home or self-care (01) ==
LOC: HO.INF 11:00
PROVIDERS: Visit Provider Internal Medicine
DX: K50.90 Crohn's disease, unspecified, without complications (principal)
CPT/HCPCS: 96365; 96375; J2327; J2405

== ENCOUNTER → 2024-08-08 11:58 | Outpatient (BNVA) | payer OTHER, SELFPAY | PROVIDERS: PCP Internal Medicine; Visit Provider Internal Medicine ==